=== PATIENT | female | born 1950 | race Caucasian/White ===

== ENCOUNTER 2019-04-07 14:42 | Inpatient (IN) ==
[2019-04-07] MEDS ORDERED: CARDIZEM INJ 50 MG VIAL ONE (15:05)
[2019-04-07] MEDS ORDERED: NS 1000 ML 1,000 ML ONE ×2 (15:14→17:28)
--- NOTE | 2019-04-07 15:15 | DR.ARRHYTH ---
HPI Time Seen Time Seen by Provider: 04/07/19 14:57 HPI Comment HPI Comment: PATIENT IS 68YR OLD WHITE FEMALE IN THE EMERGENCY ROOM WITH SOB. CHEST PAIN AND RAPID HEART RATE WITH FLUTTERING. PATIENT HAVE HISTORY OF TACHYCARDIA ON METOPROLOL. BUT TODAY IS WORSE. SHE IS WEAK AND FEEL SHE IS GOING TO PASS OUT. HAVING CHEST PAIN RADIATING TO LEFT CHEST THAT IS SHARP.RIGHT ARM IS TINGLING. AND HEART IS FLUTTERING. NO FEVER. Complaint Chief Complaint Doctor Comments: INCREASING SOB AND HEART FLUTTERING. Reviewed Nursing Notes Reviewed: Yes PMH PMH Past Medical History: Anxiety, Depression, Dyslipidemia and Hypertension Past Surgical History: No Surgical History: Hysterectomy, Joint Replacement and Other Family History Family Medical History: Hypertension Social History Do you use any recreational Drugs:: No infectious screening Isolation: Standard ROS Review of Systems Constitutional: No Symptoms Reported and See HPI; negative Chills, Fever, Weakness and Fatigue Eyes: No Symptoms Reported and See HPI; negative Eye Pain, Blurred Vision, Photophobia and Diplopia ENTM: No Symptoms Reported and See HPI; negative Ear Pain, Nose Discharge, Nose Congestion and Throat Pain Respiratoy: No Symptoms Reported and See HPI; negative Productive Cough, Short of Breath and Wheezing Cardiovascular: See HPI, Chest Pain and Palpitations; negative Syncope Gastrointestinal/Abdominal: No Symptoms Reported and See HPI; negative Abdominal Pain, Constipation, Diarrhea, Nausea and Vomiting Genitourinary: No Symptoms Reported, See HPI and Discharge Neurological: No Symptoms Reported, See HPI, Anxiety and Weakness; negative H eadache and Dizziness Musculoskeletal: No Symptoms Reported and See HPI Integumentary: No Symptoms Reported, See HPI and Change in Color; negative Rash and Juandice Hematologic/Lymphatic: No Symptoms Reported and See HPI; negative Easy Bruising, Swollen Glands and Lymphadenopathy Endocrine: No Symptoms Reported and See HPI; negative Increased Thirst, Increased Urine and Decreased Appetite Psychiatric: No Symptoms Reported and See HPI All Other Systems: Reviewed and Negative PE Vitals Vital Signs: Temp Pulse Resp BP BP Pulse Ox 04/07/19 17:31 138 H 107/75 04/07/19 17:30 124 H 82 L 04/07/19 17:15 130 H 96 04/07/19 17:00 114 H 128/83 99 04/07/19 16:58 130 H 125/82 99 04/07/19 16:45 129 H 39 H 91 L 04/07/19 16:30 111 H 27 H 109/63 78 L 04/07/19 16:15 106 H 18 99 04/07/19 16:00 109 H 18 111/58 100 04/07/19 15:45 106 H 24 96 04/07/19 15:30 96 H 20 104/70 98 04/07/19 15:15 116 H 26 H 99 04/07/19 15:11 128 H 25 H 97/59 98 04/07/19 14:54 97.5 F L 161 H 20 112/88 97 01/12/19 00:30 132/64 General Limitations: No Limitations General Appearance: Alert and In No Apparent Distress Head Head Exam: Normal Inspection and Atraumatic Eyes Eyes: Normal and Pale Conjunctiva Eye exam: Normal Appearance ENT ENT Exam: Normal Exam, Normal Oropharynx, Normal External Ear Exam and TM's Normal Bilaterally Neck Neck Exam: Normal Inspection and Trachea Midline; negative Tenderness and Lymphadenopathy Chest Chest Inspection: Normal Inspection Respiratory Respiratory Exam: Normal Lung Sounds Bilat and Chest Wall Tenderness; negative Accessory Muscle Use and Respiratory Distress Cardiovascular Cardiovascular Exam: Tachycardia, Irregular Rhythm and Normal Heart Sounds Type of Murmur: negative Systolic and Diastolic Abdominal Exam Abdominal Exam: Normal Inspection, Normal Bowel Sounds and Soft; negative Tenderness Rectal Rectal Exam: Deferred Extremities Extremities Exam: Normal Capillary Refill; negative Tenderness and Calf Tenderness Back Back Exam: Normal Inspection; negative Tenderness, (R) CVA Tenderness, (L) CVA Tenderness, Paraspinal Tenderness and Vertebral Tenderness Neurologic Neurological Exam: Alert, Oriented X3, CN II-XII Intact and Normal Gait; n egative Motor Sensory Deficit Psychiatric Psychiatric Exam: Normal Affect and Normal Mood Skin Skin Exam: Warm, Dry, Intact and Normal Color MDM Additional Information Additional Information Obtained From: Family Differential Diagnosis Atrial: Atrial Fibrillation and Atrial Flutter Ventricular: Angina/VA Miscellaneous: Anxiety/Panic, Electrolyte Disorder, Hyperthyroidism and Hypoxia COURSE Treatment Treatment: SEE ORDERS. Education/Counseling Education/Counseling: Patient and Family Educated On: Treatment and Diagnosis ROR Labs Reviewed Laboratory Results Reviewed?: Yes Result Diagrams: 04/07/19 15:23 04/07/19 15:23 Laboratory: WBC 5.2 X10^3/uL (3.6-10.0) 04/07/19 15:23 RBC 3.68 X10^6/uL (3.5-5.4) 04/07/19 15: Hgb 11.8 g/dL (12.0-16.0) L 04/07/19 15:23 Hct 35.7 % (36.0-47.0) L 04/07/19 15:23 MCV 96.8 fL (80.0-100.0) 04/07/19 15: MCH 32.0 pg (27.0-34.0) 04/07/19 15: MCHC 33.1 g/dL (33.0-35.0) 04/07/19 15: RDW 14.8 % (11.6-16.5) 04/07/19 15: Plt Count 183 X10^3/uL (150.0-450.0) 04/07/19 15: MPV 8.7 fL (7.4-11.0) 04/07/19 15: Neut % (Auto) 61.5 % (42.0-75.0) 04/07/19 15:23 Lymph % (Auto) 28.3 % (21.0-51.0) 04/07/19 15:23 [place] % (Auto) 8.2 % (0.0-13.0) 04/07/19 15: Eos % (Auto) 1.6 % (0.9-2.9) 04/07/19 15:23 Baso % (Auto) 0.4 % (0.2-1.0) 04/07/19 15: Neut # (Auto) 3.2 x10^3/uL (2.2-4.8) 04/07/19 15:23 Lymph # (Auto) 1.5 X10^3/uL (1.3-2.9) 04/07/19 15:23 [place] # (Auto) 0.4 x10^3/uL (0.3-0.8) 04/07/19 15: Eos # (Auto) 0.1 x10^3/uL (0.0-0.2) 04/07/19 15:23 Baso # (Auto) 0.0 X10^3/uL (0.0-0.1) 04/07/19 15: Absolute Nucleated RBC 0.1 /100WBC 04/07/19 15:23 PT 13.1 SECONDS (11.8-14.3) 04/07/19 15:23 INR Target Range - 04/07/19 15:23 INR 1.03 (0.8-1.3) 04/07/19 15:23 APTT 28.3 SECONDS (22.9-36.5) 04/07/19 15:23 PTT Comment - 04/07/19 15:23 Sodium 142 mmol/L (136-145) 04/07/19 15:23 Corrected Sodium TNP 04/07/19 15:23 Potassium 4.6 mmol/L (3.5-5.1) 04/07/19 15:23 Chloride 109 mmol/L (98-107) H 04/07/19 15:23 Carbon Dioxide 23.5 mmol/L (21-32) 04/07/19 15:23 BUN 19 mg/dL (7-18) H 04/07/19 15:23 Creatinine 0.96 mg/dL (0.55-1.02) 04/07/19 15:23 Est GFR (MDRD) Af Amer > 60 (>60) 04/07/19 15:23 Est GFR (MDRD) Non-Af > 60 (>60) 04/07/19 15:23 Glucose 94 mg/dL (65-99) 04/07/19 15:23 Calcium 7.8 mg/dL (8.5-10.1) L 04/07/19 15:23 Corrected Calcium 8.7 mg/dL (8.5-10.1) 04/07/19 15:23 Magnesium 1.6 mg/dL (1.7-2.9) L 04/07/19 15:23 Total Bilirubin 0.10 mg/dL (0.2-1.0) L 04/07/19 15:23 AST 24 Units/L (15-37) 04/07/19 15:23 ALT 28 Units/L (12-78) 04/07/19 15:23 Alkaline Phosphatase 54 Units/L (46-116) 04/07/19 15:23 Creatine Kinase 40 Units/L (26-192) 04/07/19 15:23 CK-MB (CK-2) < 1.0 ng/mL (0-4.0) 04/07/19 15:23 CK/CKMB % Calc 2.5 % (<4) 04/07/19 15:23 Troponin I < 0.02 ng/mL (0-1.5) 04/07/19 15:23 Total Protein 5.6 g/dL (6.4-8.2) L 04/07/19 15:23 Albumin 2.9 g/dL (3.4-5.0) L 04/07/19 15:23 Globulin 2.7 g/dL (2.5-4.5) 04/07/19 15:23 Albumin/Globulin Ratio 1.1 Ratio (1.1-2.1) 04/07/19 15:23 XRAY XRAY Interpreted by: Radiologist XRAY Findings: REPORT NOTED AND DISCUSSED WITH PATIENT AND HER FAMILY. EKG Rate: 158 [place]: Normal Rhythm: Afib (WITH RVR.) Block: None Hypertrophy: None ST: Nonsp Opioid Opioid Risk Tool Age (Maxi box if 16-45): No Total: 0 Total Score Risk Category: Low Risk Copyright: Terrell LR predicting aberrant behaviors Diagnosis Discharge Problem: Atrial fibrillation, new onset, Near syncope
[2019-04-07] MEDS ORDERED: NS 1000 ML 1,000 ML IV ONE (15:19)
--- NOTE | 2019-04-07 15:29 | RAD ---
History: Acute chest pain Study: AP chest Comparison: None Findings: The lungs are clear and the heart and mediastinum are unremarkable. There is no edema or effusion. No bony abnormality is demonstrated. Impression: No evidence for active cardiopulmonary disease Reported By:
[2019-04-07 15:31] LABS: BASOPHILS % (AUTO) 0.4 % (0.2-1.0); EOSINOPHILS # (AUTO) 0.1 x10^3/uL (0.0-0.2); EOSINOPHILS % (AUTO) 1.6 % (0.9-2.9); HEMATOCRIT 35.7 % (36.0-47.0); HEMOGLOBIN 11.8 g/dL (12.0-16.0); LYMPHOCYTES # (AUTO) 1.5 X10^3/uL (1.3-2.9); LYMPHOCYTES % (AUTO) 28.3 % (21.0-51.0); MEAN CORPUSCULAR HGB CONC 33.1 g/dL (33.0-35.0); MEAN CORPUSCULAR VOLUME 96.8 fL (80.0-100.0); MEAN PLATELET VOLUME 8.7 fL (7.4-11.0); MONOCYTES # (AUTO) 0.4 x10^3/uL (0.3-0.8); MONOCYTES % (AUTO) 8.2 % (0.0-13.0); NEUTROPHILS # (AUTO) 3.2 x10^3/uL (2.2-4.8); NEUTROPHILS % (AUTO) 61.5 % (42.0-75.0); PLATELET COUNT 183 X10^3/uL (150.0-450.0); RED BLOOD COUNT 3.68 X10^6/uL (3.5-5.4); RED CELL DISTRIBUTION WIDTH 14.8 % (11.6-16.5); WHITE BLOOD COUNT 5.2 X10^3/uL (3.6-10.0)
[2019-04-07 15:48] LABS: BLOOD UREA NITROGEN 19 mg/dL (7-18); CALCIUM 7.8 mg/dL (8.5-10.1); CARBON DIOXIDE 23.5 mmol/L (21-32); CHLORIDE 109 mmol/L (98-107); CREATININE 0.96 mg/dL (0.55-1.02); SODIUM 142 mmol/L (136-145); TROPONIN I < 0.02 ng/mL (0-1.5); eGFR NON BLACK RACES > 60 (>60)
[2019-04-07 15:52] LABS: ALANINE AMINOTRANSFERASE 28 Units/L (12-78); ALBUMIN 2.9 g/dL (3.4-5.0); ALKALINE PHOSPHATASE 54 Units/L (46-116); ASPARTATE AMINO TRANSFERASE 24 Units/L (15-37); CKMB % 2.5 % (<4); COR CA(FOR HYPOALB) 8.7 mg/dL (8.5-10.1); CREATINE KINASE 40 Units/L (26-192); CREATINE KINASE MB < 1.0 ng/mL (0-4.0); MAGNESIUM 1.6 mg/dL (1.7-2.9); TOTAL PROTEIN 5.6 g/dL (6.4-8.2)
[2019-04-07] MEDS ORDERED: LOPRESSOR TAB 50 MG ONE (15:54)
[2019-04-07] MEDS ORDERED: LOPRESSOR TAB 25 MG PO ONE (16:00)
[2019-04-07] MEDS ORDERED: NS 100 ML IV 100 ML IV ONE (17:15)
[2019-04-07] MEDS ORDERED: CARDIZEM INJ 125 MG VIAL ONE (17:15)
[2019-04-07] MEDS ORDERED: CARDIZEM INJ 50 MG VIAL IVP ONE (17:45)
[2019-04-07] MEDS: CARDIZEM INJ 125 MG VIAL 125 MG in NS 100 ML IV 100 ML IV PRN (17:50)
[2019-04-07] MEDS ORDERED: ATIVAN TAB 1 MG PO PRN (17:56)
[2019-04-07] MEDS ORDERED: ATIVAN TAB 1 MG ONE (18:08)
[2019-04-07] MEDS ORDERED: NS 1000 ML 1,000 ML IV SCH (19:00)
[2019-04-07] MEDS: NS 1000 ML 1,000 ML IV SCH (19:33)
[2019-04-07 20:07] VITALS: BMI 20.2
[2019-04-07] MEDS ORDERED: AFLURIA II4 or FLUARIX II4 IM ONE (20:07)
[2019-04-07] MEDS ORDERED: PREVNAR 13 IM ONE (20:07)
[2019-04-07] MEDS ORDERED: NORCO 5/325 MG TAB ONE (20:11)
[2019-04-07] MEDS: NORCO 5/325 MG TAB PO PRN (20:35)
[2019-04-07] MEDS: AMBIEN PO PRN (20:36)
[2019-04-07] MEDS ORDERED: MAGNESIUM SULFATE 1 GRAM/100 mL PREMIX 1 G/100 ML BAG IV ONE (21:55)
[2019-04-07] MEDS: MAGNESIUM SULFATE 1 GRAM/100 mL PREMIX 1 GM/100 ML BAG IV PRN ×2 (22:10→23:22)
[2019-04-07] MEDS ORDERED: ZOFRAN INJ 4 MG VIAL IVP PRN (22:27)
[2019-04-07] MEDS ORDERED: ZOFRAN INJ 4 MG VIAL ONE (22:33)
[2019-04-08] MEDS: NS 1000 ML 1,000 ML IV SCH ×4 (00:13→18:59)
[2019-04-08] MEDS: PEPCID 20 MG IV PREMIX* 20 MG/50 ML BAG IV SCH ×2 (00:15→09:30)
[2019-04-08] MEDS: NORCO 5/325 MG TAB PO PRN ×3 (06:06→21:53)
[2019-04-08 06:14] LABS: BASOPHILS % (AUTO) 0.4 % (0.2-1.0); EOSINOPHILS # (AUTO) 0.1 x10^3/uL (0.0-0.2); EOSINOPHILS % (AUTO) 1.7 % (0.9-2.9); HEMATOCRIT 34.7 % (36.0-47.0); HEMOGLOBIN 11.4 g/dL (12.0-16.0); LYMPHOCYTES # (AUTO) 0.8 X10^3/uL (1.3-2.9); LYMPHOCYTES % (AUTO) 17.3 % (21.0-51.0); MEAN CORPUSCULAR HGB CONC 32.8 g/dL (33.0-35.0); MEAN CORPUSCULAR VOLUME 97.5 fL (80.0-100.0); MONOCYTES # (AUTO) 0.4 x10^3/uL (0.3-0.8); MONOCYTES % (AUTO) 8.7 % (0.0-13.0); NEUTROPHILS # (AUTO) 3.2 x10^3/uL (2.2-4.8); NEUTROPHILS % (AUTO) 71.9 % (42.0-75.0); PLATELET COUNT 133 X10^3/uL (150.0-450.0); RED BLOOD COUNT 3.55 X10^6/uL (3.5-5.4); RED CELL DISTRIBUTION WIDTH 15.1 % (11.6-16.5); WHITE BLOOD COUNT 4.5 X10^3/uL (3.6-10.0)
[2019-04-08 06:39] LABS: ALANINE AMINOTRANSFERASE 26 Units/L (12-78); ALBUMIN 2.6 g/dL (3.4-5.0); ALKALINE PHOSPHATASE 47 Units/L (46-116); ASPARTATE AMINO TRANSFERASE 21 Units/L (15-37); BLOOD UREA NITROGEN 14 mg/dL (7-18); CALCIUM 7.1 mg/dL (8.5-10.1); CARBON DIOXIDE 20.4 mmol/L (21-32); CHLORIDE 114 mmol/L (98-107); CKMB % 2.4 % (<4); COR CA(FOR HYPOALB) 8.2 mg/dL (8.5-10.1); CREATINE KINASE 41 Units/L (26-192); CREATINE KINASE MB < 1.0 ng/mL (0-4.0); MAGNESIUM 2.2 mg/dL (1.7-2.9); SODIUM 145 mmol/L (136-145); TROPONIN I < 0.02 ng/mL (0-1.5); eGFR NON BLACK RACES > 60 (>60)
[2019-04-08] MEDS ORDERED: KLOR-CON PO PRN (06:50)
[2019-04-08] MEDS ORDERED: K-RIDER 10 MEQ/NS 100 ML 10 MEQ/100 ML BAG IV PRN (06:50)
[2019-04-08] MEDS ORDERED: POTASSIUM CHL 40 MEQ/NS 0.45% 500 ML IV PRN (06:50)
[2019-04-08] MEDS ORDERED: POTASSIUM CHL 60 MEQ/NS 0.45% 500 ML IV PRN (06:50)
[2019-04-08] MEDS ORDERED: MICRO K EXTEN CAP 10 MEQ PO PRN (06:50)
[2019-04-08] MEDS ORDERED: POTASSIUM CHLORIDE LIQ 20 MEQ UDC PO PRN (06:50)
[2019-04-08] MEDS ORDERED: PATIENT'S HOME MEDICATION (Ranitidine Hcl 300 MG) PO SCH (09:00)
[2019-04-08] MEDS ORDERED: ZANTAC PO SCH (09:00)
[2019-04-08] MEDS ORDERED: ESTRACE PO SCH (09:00)
[2019-04-08] MEDS: LOVENOX INJ 40 MG SYR SC SCH (09:46)
--- NOTE | 2019-04-08 10:28 | RAD ---
History: Shortness of breath and atrial fib Study: Upright portable AP chest Comparison: Yesterday Findings: There are new [place] B-lines and there is new mild vascular congestion. The heart size is prominent. There is no definite pleural effusion. There is mild subsegmental atelectasis at the right lung base. Impression: New interstitial edema and mild vascular congestion suggesting right sided heart failure Mild right basilar subsegmental atelectasis Reported By:
[2019-04-08] MEDS: CARDIZEM CD 240 MG 24-HR PO SCH (11:27)
[2019-04-08] MEDS: CARDIZEM INJ 125 MG VIAL 125 MG in NS 100 ML IV 100 ML IV PRN (11:28)
[2019-04-08] MEDS: PATIENT'S HOME MEDICATION (Diclofenac Sodium 75 MG) PO SCH (11:29)
[2019-04-08] MEDS ORDERED: LASIX IVP ONE ×2 (11:37→12:11)
[2019-04-08] MEDS: K-DUR TAB 20 MEQ PO PRN ×3 (13:41→20:19)
--- NOTE | 2019-04-08 17:25 | DR.H&P ---
H&P - History & Physical for Day of: H&P Date: 04/07/19 - Chief Complaint Chief Complaint: SOB, HEART RACING, WEAKNESS - History of Present Illness History of Present Illness: PT IS 68 WF ER ADMISSION AFTER PRESENTING WITH CO PATIENT IS 68YR OLD WHITE FEMALE IN THE EMERGENCY ROOM WITH SOB, CHEST PAIN AND RAPID HEART RATE WITH FLUTTERING. PATIENT HAVE HISTORY OF TACHYCARDIA WAS METOPROLOL WHICH SHE HAS NOT TAKEN FOR SEVERAL DAYS AND MUCH WORSE TODAY. SHE IS WEAK AND FEEL SHE IS GOING TO PASS OUT. HAVING CHEST PAIN RADIATING TO LEFT CHEST. PT WAS TACHYCARDIC IN ER, STARTED ON CARDIZEM DRIP, ADMITTED TO ICU FOR TREATMENT AND EVALUATION OF ACUTE ILLNESS. - Past Medical History Past Medical History: Hypertension, Dyslipidemia, Depression, Anxiety - Past Surgical History Surgical History: Hysterectomy, Ortho Surgery, Other - Family History Family Medical History: Diabetes Mellitus, Cancer, [place], Heart Failure, Hypertensi on - Social History Does patient currently use any type of tobacco product: No Have you used tobacco products in the last 12 months: No Type of Tobacco Use: None Does any household member use tobacco: No Alcohol Use: None Drug Use: None - Medications Home Medications: No Known Drug Allergies Allergy (Verified 04/07/19 15:01) CONTINUE taking the following medications diclofenac sodium 75 mg PO DAILY 04/07/19 [History] - Review of Systems Constitutional: Weakness Eyes: No Symptoms Reported ENT: No Symptoms Reported Respiratory: Wheezing Cardiovascular: Chest Pain, Palpitations, Light Headedness Gastrointestinal: No Symptoms Reported Genitourinary: No Symptoms Reported Musculoskeletal: No Symptoms Reported Skin: No Symptoms Reported Neurological: Weakness - Physical Exam Vital Signs: Temperature 98.6 F Pulse Rate [Apical] 71 Pulse Rate 102 Respiratory Rate 20 Blood Pressure [Left Arm] 97/68 Blood Pressure 118/70 O2 Sat by Pulse Oximetry 98 Oriented: Normal Eyes: Normal Ear: Normal Nose: Normal Throat: Normal Respiratory: RLL Diminished, LLL Diminished Cardiovascular: Tachycardia, Irregular. negative: Edema : Normal Auscultation: Bowel Sounds: Normal Palpation: Normal Tenderness: Epigastric, Mild Skin: Decreased [place] Musculoskeletal: Normal Psychiatric: Anxiety Affect: Anxious Speech Pattern: Clear, Appropriate - Assessment/Plan (1) Atrial fibrillation with RVR Status: Acute Plan: CARDIZEM DRIP. CONTINOUS CARDIAC AND BP CONTROL, MONITORING. SUPPLEMENTAL O2. STRICT I & OS, VERIFY HOME MEDICATION. CXR Q AM, ANTICOAG THERAPY (2) Chest pain Status: Acute (3) Shortness of breath Status: Acute - Allergies Allergies/Adverse Reactions: Allergies Allergy/AdvReac Type Severity Reaction Status Date / Time No Known Drug Allergies Allergy Verified 04/07/19 15:01
--- NOTE | 2019-04-08 17:32 | PCM.PROG ---
Progress Note - Progress Note for Day of Date of Exam: 04/08/19 - Subjective Subjective: 68 WF ER ADMISSION WITH AFIB WITH RVR, PT CURRENTLY ON CARDIZEM DRIP, BP STABLE THIS AM, HEART RATE 101, AFIB. PT CO INCREASED SOB. PT DENIES ANY HX OF CAD, DENIES ANY PREVOUS HEART CATH OR STRESS TEST. PT HAS MILD EPIGASTRIC TENDERNESS, STARTED ON PROTONIX IV. PLAN TO START PO CARDIZEM AND T APER OFF DRIP PER PROTOCOL. AM CXR WITH RIGHT SIDE HEART FAILURE, LASIX IV GIVEN, IV FLUIDS D/C. CONTINUE STRICT I&OS PAIN CONTROL. - Past Medical Family Social History Past Med/Fam/Surg Hx: No changes since H&P Allergies: Allergies No Known Drug Allergies Allergy (Verified 04/07/19 15:01) - Review of Systems ROS: No change since H&P - Vital Signs and I&O's Vital Signs: Temperature 98.6 F Pulse Rate [Apical] 71 Pulse Rate 102 Respiratory Rate 20 Blood Pressure [Left Arm] 97/68 Blood Pressure 118/70 O2 Sat by Pulse Oximetry 98 Intake and Output: Intake & Output 04/06/19 04/07/19 04/08/19 04/09/19 11:59 11:59 11:59 11:59 Intake Total 2319 / 2319 2053 / 2053 Output Total 900 / 900 2250 / 2250 Balance 1419 / 1419 -196 / -196 - Physical Exam Oriented: Normal Eyes: Normal Ear: Normal Nose: Normal Throat: Normal Respiratory: Diminished Cardiovascular: Tachycardia, Irregular. negative: Edema : Normal Auscultation: Bowel Sounds: Normal Tenderness: Epigastric, Mild Skin: Decreased [place] Musculoskeletal: Normal Psychiatric: Anxiety Affect: Anxious Speech Pattern: Clear, Appropriate - Laboratory and Diagnostics Result Diagrams: 04/08/19 05:39 04/08/19 15:44 Labs: Laboratory WBC 4.5 X10^3/uL (3.6-10.0) 04/08/19 05:39 RBC 3.55 X10^6/uL (3.5-5.4) 04/08/19 05:39 Hgb 11.4 g/dL (12.0-16.0) L 04/08/19 05:39 Hct 34.7 % (36.0-47.0) L 04/08/19 05:39 MCV 97.5 fL (80.0-100.0) 04/08/19 05:39 MCH 32.0 pg (27.0-34.0) 04/08/19 05:39 MCHC 32.8 g/dL (33.0-35.0) L 04/08/19 05:39 RDW 15.1 % (11.6-16.5) 04/08/19 05:39 Plt Count 133 X10^3/uL (150.0-450.0) L 04/08/19 05:39 MPV 9.0 fL (7.4-11.0) 04/08/19 05:39 Neut % (Auto) 71.9 % (42.0-75.0) 04/08/19 05:39 Lymph % (Auto) 17.3 % (21.0-51.0) L 04/08/19 05:39 [place] % (Auto) 8.7 % (0.0-13.0) 04/08/19 05:39 Eos % (Auto) 1.7 % (0.9-2.9) 04/08/19 05:39 Baso % (Auto) 0.4 % (0.2-1.0) 04/08/19 05:39 Neut # (Auto) 3.2 x10^3/uL (2.2-4.8) 04/08/19 05:39 Lymph # (Auto) 0.8 X10^3/uL (1.3-2.9) L 04/08/19 05:39 [place] # (Auto) 0.4 x10^3/uL (0.3-0.8) 04/08/19 05:39 Eos # (Auto) 0.1 x10^3/uL (0.0-0.2) 04/08/19 05:39 Baso # (Auto) 0.0 X10^3/uL (0.0-0.1) 04/08/19 05:39 Absolute Nucleated RBC 0.0 /100WBC 04/08/19 05:39 PT 13.8 SECONDS (11.8-14.3) 04/08/19 05:39 INR Target Range - 04/08/19 05:39 INR 1.10 (0.8-1.3) 04/08/19 05:39 APTT 28.1 SECONDS (22.9-36.5) 04/08/19 05:39 PTT Comment - 04/08/19 05:39 Sodium 145 mmol/L (136-145) 04/08/19 05:39 Corrected Sodium TNP 04/08/19 05:39 Potassium 3.4 mmol/L (3.5-5.1) L 04/08/19 15:44 Chloride 114 mmol/L (98-107) H 04/08/19 05:39 Carbon Dioxide 20.4 mmol/L (21-32) L 04/08/19 05:39 BUN 14 mg/dL (7-18) 04/08/19 05:39 Creatinine 0.80 mg/dL (0.55-1.02) 04/08/19 05:39 Est GFR (MDRD) Af Amer > 60 (>60) 04/08/19 05:39 Est GFR (MDRD) Non-Af > 60 (>60) 04/08/19 05:39 Glucose 88 mg/dL (65-99) 04/08/19 05:39 Calcium 7.1 mg/dL (8.5-10.1) L 04/08/19 05:39 Corrected Calcium 8.2 mg/dL (8.5-10.1) L 04/08/19 05:39 Magnesium 2.2 mg/dL (1.7-2.9) 04/08/19 05:39 Total Bilirubin 0.10 mg/dL (0.2-1.0) L 04/08/19 05:39 AST 21 Units/L (15-37) 04/08/19 05:39 ALT 26 Units/L (12-78) 04/08/19 05:39 Alkaline Phosphatase 47 Units/L (46-116) 04/08/19 05:39 Creatine Kinase 41 Units/L (26-192) 04/08/19 05:39 CK-MB (CK-2) < 1.0 ng/mL (0-4.0) 04/08/19 05:39 CK/CKMB % Calc 2.4 % (<4) 04/08/19 05:39 Troponin I < 0.02 ng/mL (0-1.5) 04/08/19 05:39 Total Protein 5.0 g/dL (6.4-8.2) L 04/08/19 05:39 Albumin 2.6 g/dL (3.4-5.0) L 04/08/19 05:39 Globulin 2.4 g/dL (2.5-4.5) L 04/08/19 05:39 Albumin/Globulin Ratio 1.1 Ratio (1.1-2.1) 04/08/19 05:39 - Plan (1) Atrial fibrillation with RVR Status: Acute Plan: CARDIZEM DRIP PER PROTOCOL. CONTINOUS CARDIAC AND BP CONTROL, MONITORING. SUPPLEMENTAL O2. STRICT I & OS, VERIFY HOME MEDICATION. CXR Q AM, ANTICOAG THERAPY (2) Chest pain Status: Acute (3) Shortness of breath Status: Acute
[2019-04-08] MEDS: ATIVAN TAB 1 MG PO PRN (18:50)
[2019-04-08] MEDS: MAGNESIUM SULFATE 1 GRAM/100 mL PREMIX 1 GM/100 ML BAG IV PRN ×2 (20:20→21:09)
[2019-04-08] MEDS: AMBIEN PO PRN (21:53)
[2019-04-09] MEDS: NS 1000 ML 1,000 ML IV SCH ×2 (03:48→12:40)
[2019-04-09 06:38] LABS: BASOPHILS % (AUTO) 0.3 % (0.2-1.0); EOSINOPHILS # (AUTO) 0.1 x10^3/uL (0.0-0.2); EOSINOPHILS % (AUTO) 2.2 % (0.9-2.9); HEMATOCRIT 33.7 % (36.0-47.0); HEMOGLOBIN 11.2 g/dL (12.0-16.0); LYMPHOCYTES # (AUTO) 0.5 X10^3/uL (1.3-2.9); LYMPHOCYTES % (AUTO) 15.1 % (21.0-51.0); MEAN CORPUSCULAR HEMOGLOBIN 32.2 pg (27.0-34.0); MEAN CORPUSCULAR HGB CONC 33.4 g/dL (33.0-35.0); MEAN CORPUSCULAR VOLUME 96.6 fL (80.0-100.0); MEAN PLATELET VOLUME 8.9 fL (7.4-11.0); MONOCYTES # (AUTO) 0.4 x10^3/uL (0.3-0.8); MONOCYTES % (AUTO) 10.2 % (0.0-13.0); NEUTROPHILS # (AUTO) 2.6 x10^3/uL (2.2-4.8); NEUTROPHILS % (AUTO) 72.2 % (42.0-75.0); PLATELET COUNT 132 X10^3/uL (150.0-450.0); RED BLOOD COUNT 3.49 X10^6/uL (3.5-5.4); RED CELL DISTRIBUTION WIDTH 14.7 % (11.6-16.5); WHITE BLOOD COUNT 3.6 X10^3/uL (3.6-10.0)
[2019-04-09 06:46] LABS: ALANINE AMINOTRANSFERASE 37 Units/L (12-78); ALBUMIN 2.6 g/dL (3.4-5.0); ALKALINE PHOSPHATASE 55 Units/L (46-116); ASPARTATE AMINO TRANSFERASE 28 Units/L (15-37); BLOOD UREA NITROGEN 8 mg/dL (7-18); CALCIUM 7.6 mg/dL (8.5-10.1); CARBON DIOXIDE 23.9 mmol/L (21-32); CHLORIDE 108 mmol/L (98-107); COR CA(FOR HYPOALB) 8.7 mg/dL (8.5-10.1); SODIUM 141 mmol/L (136-145); TOTAL PROTEIN 5.3 g/dL (6.4-8.2); eGFR NON BLACK RACES > 60 (>60)
[2019-04-09] MEDS: LOVENOX INJ 40 MG SYR SC SCH (08:04)
[2019-04-09] MEDS: PATIENT'S HOME MEDICATION (Diclofenac Sodium 75 MG) PO SCH (08:04)
[2019-04-09] MEDS: CARDIZEM CD 240 MG 24-HR PO SCH (08:04)
[2019-04-09] MEDS ORDERED: PROTONIX INJ 40 MG VIAL IVP SCH (09:00)
[2019-04-09] MEDS ORDERED: HEPARIN SODIUM IN D5W 25,000 UNITS/500 ML BAG IV PRN (09:34)
[2019-04-09 09:35] LABS: CKMB % 2.6 % (<4); CREATINE KINASE 39 Units/L (26-192); CREATINE KINASE MB < 1.0 ng/mL (0-4.0); TROPONIN I < 0.02 ng/mL (0-1.5)
[2019-04-09] MEDS: ATIVAN TAB 1 MG PO PRN (09:37)
[2019-04-09] MEDS: CARDIZEM INJ 125 MG VIAL 125 MG in NS 100 ML IV 100 ML IV PRN (09:38)
[2019-04-09] MEDS ORDERED: HEPARIN SODIUM INJ 5000 UNITS IVP ONE (09:44)
[2019-04-09] MEDS ORDERED: HEPARIN SODIUM INJ 5000 UNITS ONE (09:47)
--- NOTE | 2019-04-09 10:05 | RAD ---
Chest AP portable Indication: Dyspnea and atrial fibrillation. Comparison: 04/08/2019 radiograph Findings: There is no pneumothorax. Monitoring leads obscure detail. There is no consolidation. Patchy left lower lung peribronchial thickening is noted, with possible underlying infiltrate. Trace effusions possible on the left. No large effusion seen. Overall, peribronchial markings have decreased Impression: 1. Improving appearance of the lungs suggesting improving CHF 2. Patchy left lower lung opacity could reflect pneumonia. Recommend continued follow-up to resolution to exclude underlying process Reported By:
[2019-04-09 13:26] VITALS: BP 98/55
== END 2019-04-09 13:31 | disposition short-term general hospital (02) | DRG 310 ==
LOC: ER 14:42 → ICU 17:46
PROVIDERS: ADMIT Internal Medicine; ATTEND Internal Medicine
DX: R07.89 Other chest pain; Z23 Encounter for immunization; E78.2 Mixed hyperlipidemia; R20.0 Anesthesia of skin; R06.02 Shortness of breath; R47.89 Other speech disturbances; I48.91 Unspecified atrial fibrillation; F41.8 Other specified anxiety disorders
CPT/HCPCS: 36415; 71010; 71045; 80053; 82550; 82553; 83735; 84132; 84484; 85025; 85610; 85730; 90674; 90686; 92507; 92523; 93005; 96365; 96367; 96374; 96375; 99285; A4216; A4222; C9113; S0028; 90670; J1644; J1650; J1940; J2405; J3475; J3490; J7030; J7050

== ENCOUNTER 2020-03-24 11:23 | Inpatient (IN) ==
[2020-03-24 11:52] VITALS: BMI 21.2
--- NOTE | 2020-03-24 13:03 | DR.NAUSEAF ---
HPI Time Seen Time Seen by Provider: 03/24/20 12:51 Primary Care Physician Primary Care Physician: NFD Complaints Chief Complaint Doctors Comments: Patient anxious, her PCP DR. Osullivan was shut down and she is out of her anxiety medicine. Chief Complaint:: PT C/O THROWING UP, STOMACH HURTING, ACHING ALL OVER, "MY HEART BEATS REAL FAST" Self Treatment fo Chief Complaint: "COUGH SYRUP AT HOME, I TAKE MY REGULAR MEDICINE AT HOME" " I TOOK A GOODY PM TO HELP ME SLEEP" COVID-19 Coronavirus risk:travel/contact w/high risk person: No Has patient experienced Coronavirus symptoms: Yes Coronavirus symptoms experienced: Coughing and Shortness of Breath Reviewed Nurses Notes Reviewed: Yes Source History Provided: Patient Mode of Arrival Mode of Arrival: Ambulatory Timing Onset of Chief Complaint: 03/10/20 Severity Number of episodes of vomiting over last 24 hours: 14 Context Onset: Spontaneous Recent: denies Travel, Contact Exposure and None Possible Ingestion: Unknown : No Quality Quality: Bilious Associated Signs and Symptoms Abdominal Pain Quality: Aching Abdominal Pain Location: Epigastric Symptoms: denies Diarrhea PMH PMH Past Medical History: Yes Past Medical History: Anxiety, Depression, Dyslipidemia, GERD and Hypertension Past Surgical History: Yes Surgical History: Hysterectomy, Joint Replacement, Ortho Surgery and Other Family History History of Family Medical Conditions: Yes Family Medical History: Diabetes Mellitus, Cancer, [place], Heart Failure and Hypertension Social History Does any household member use tobacco: Yes Alcohol Use: Rarely Do you use any recreational Drugs:: No Lives With: Family Lives Where: Home Travel Risk Coronavirus risk:travel/contact w/high risk person: No Has patient experienced Coronavirus symptoms: Yes Coronavirus symptoms experienced: Coughing and Shortness of Breath Infectious screening In the last 2 months have you had wt loss of >10#?: NO Have you had fever, night sweats or hemotysis?: No Have you traveled outside the country in the last 6 months?: No Isolation: Droplet ROS Review of Systems Constitutional: No Symptoms Reported Eyes: No Symptoms Reported ENTM: No Symptoms Reported Respiratoy: No Symptoms Reported Cardiovascular: Palpitations Gastrointestinal/Abdominal: Nausea and Vomiting Genitourinary: No Symptoms Reported Neurological: Anxiety Musculoskeletal: No Symptoms Reported Integumentary: No Symptoms Reported Hematologic/Lymphatic: No Symptoms Reported Endocrine: No Symptoms Reported Psychiatric: Anxiety All Other Systems: Reviewed and Negative PE Vital Signs Vitals: Temperature 97.9 F Pulse Rate [Left] 88 Pulse Rate 116 Respiratory Rate 20 Blood Pressure [Left Arm] 137/66 Blood Pressure 130/68 O2 Sat by Pulse Oximetry 97 General Limitations: No Limitations General Appearance: Alert and In No Apparent Distress Head Head Exam: Normal Inspection, Atraumatic and Normocephalic Eyes Eye exam: Normal Appearance and EOMI ENT ENT Exam: Normal Exam and Normal Oropharynx Neck Neck Exam: Normal Inspection, Full ROM and Trachea Midline Chest Chest Inspection: Normal Inspection Respiratory Respiratory Exam: Normal Lung Sounds Bilat Respiratory Exam: Bilateral: Clear to Auscultation Cardiovascular Cardiovascular Exam: Tachycardia Abdominal Exam Abdominal Exam: Normal Inspection, Normal Bowel Sounds and Soft; negative Distention and Guarding Abdominal Tenderness: Epigastrium Rectal Rectal Exam: Deferred External Exam: Female: Deferred : Speculum Exam (Female): Deferred : Bimanual Exam (female): Deferred Extremities Extremities Exam: Normal Inspection and Full ROM Back Back Exam: Normal Inspection and Full ROM Psychiatric Psychiatric Exam: Anxious Skin Skin Exam: Normal Color COURSE Consultation Called: 15:39 Call Returned: 15:39 Consultation Comments: case discussed with DR. Swenson admit for 2 units PRBC ROR Labs Reviewed Result Diagrams: 03/24/20 13:12 03/24/20 13:12 Laboratory: WBC 4.8 X10^3/uL (3.6-10.0) 03/24/20 13:12 RBC 3.21 X10^6/uL (3.5-5.4) L 03/24/20 13:12 Hgb 7.1 g/dL (12.0-16.0) L 03/24/20 13:12 Hct 23.5 % (36.0-47.0) L 03/24/20 13:12 MCV 73.0 fL (80.0-100.0) L 03/24/20 13:12 MCH 22.0 pg (27.0-34.0) L 03/24/20 13:12 MCHC 30.1 g/dL (33.0-35.0) L 03/24/20 13:12 RDW 19.1 % (11.6-16.5) H 03/24/20 13:12 Plt Count 434 X10^3/uL (150.0-450.0) 03/24/20 13:12 Plt Count Comment Adequate (ADEQUATE) 03/24/20 13:12 MPV 8.0 fL (7.4-11.0) 03/24/20 13:12 Neut % (Auto) 79.0 % (42.0-75.0) H 03/24/20 13:12 Lymph % (Auto) 14.1 % (21.0-51.0) L 03/24/20 13:12 [place] % (Auto) 5.4 % (0.0-13.0) 03/24/20 13:12 Eos % (Auto) 0.5 % (0.9-2.9) L 03/24/20 13:12 Baso % (Auto) 1.0 % (0.2-1.0) 03/24/20 13:12 Neut # (Auto) 3.8 x10^3/uL (2.2-4.8) 03/24/20 13:12 Lymph # (Auto) 0.7 X10^3/uL (1.3-2.9) L 03/24/20 13:12 [place] # (Auto) 0.3 x10^3/uL (0.3-0.8) 03/24/20 13:12 Eos # (Auto) 0.0 x10^3/uL (0.0-0.2) 03/24/20 13:12 Baso # (Auto) 0.0 X10^3/uL (0.0-0.1) 03/24/20 13:12 Absolute Nucleated RBC 0.1 /100WBC 03/24/20 13:12 Plt Morphology Comment Normal (NORMAL) 03/24/20 13:12 RBC Morphology Abnormal (NORMAL) A 03/24/20 13:12 Hypochromasia 1+ A 03/24/20 13:12 Anisocytosis Slight A 03/24/20 13:12 Microcytosis Slight A 03/24/20 13:12 Sodium 138 mmol/L (136-145) 03/24/20 13:12 Corrected Sodium TNP 03/24/20 13:12 Potassium 3.7 mmol/L (3.5-5.1) 03/24/20 13:12 Chloride 102 mmol/L (98-107) 03/24/20 13:12 Carbon Dioxide 25.4 mmol/L (21-32) 03/24/20 13:12 BUN 9 mg/dL (7-18) 03/24/20 13:12 Creatinine 1.02 mg/dL (0.55-1.02) 03/24/20 13:12 Est GFR (MDRD) Af Amer > 60 (>60) 03/24/20 13:12 Est GFR (MDRD) Non-Af 57 (>60) L 03/24/20 13:12 Glucose 99 mg/dL (65-99) 03/24/20 13:12 Calcium 8.8 mg/dL (8.5-10.1) 03/24/20 13:12 Corrected Calcium TNP 03/24/20 13:12 Iron 9 ug/dL (50-175) L 03/24/20 13:12 Transferrin 366 mg/dL (202-364) H 03/24/20 13:12 Ferritin 6 ng/mL (8-252) L 03/24/20 13:12 Total Bilirubin 0.20 mg/dL (0.2-1.0) 03/24/20 13:12 AST 21 Units/L (15-37) 03/24/20 13:12 ALT 10 Units/L (12-78) L 03/24/20 13:12 Alkaline Phosphatase 80 Units/L (46-116) 03/24/20 13:12 Total Protein 7.5 g/dL (6.4-8.2) 03/24/20 13:12 Albumin 3.4 g/dL (3.4-5.0) 03/24/20 13:12 Globulin 4.1 g/dL (2.5-4.5) 03/24/20 13:12 Albumin/Globulin Ratio 0.8 Ratio (1.1-2.1) L 03/24/20 13:12 Vitamin B12 1054 pg/mL (193-986) H 03/24/20 13:12 Folate 18.6 ng/mL (>8.6) 03/24/20 13:12 Stool Description Fob tube 03/24/20 14:49 Stl Occult Blood (IFOB) Negative (NEGATIVE) 03/24/20 14:49 Blood Type O POSITIVE 03/24/20 12:51 Antibody Screen Negative 10/15/20 12:51 XRAY XRAY Interpreted by: Radiologist X-ray Results: AAS: no free air, No air fluid levels EKG Rate: 92 Rhythm: NSR Block: None Hypertrophy: None ST: Normal Opioid Opioid Risk Tool Age (Maxi box if 16-45): No History of Preadolescent Sexual Abuse: No Total: 0 Total Score Risk Category: Low Risk Copyright: Xander LIAO predicting aberrant behaviors Diagnosis Discharge Problem: Anemia Qualifiers: Anemia type: iron deficiency Iron deficiency anemia type: unspecified iron deficiency Qualified Code(s): D50.9 - Iron deficiency anemia, unspecified Instructions Forms: Precautions for COVID19 Patient Portal Social Distancing
[2020-03-24] MEDS ORDERED: ZOFRAN TAB 4 MG PO ONE (13:04)
[2020-03-24] MEDS ORDERED: ZOFRAN TAB 4 MG ONE (13:11)
[2020-03-24 13:28] LABS: EOSINOPHILS % (AUTO) 0.5 % (0.9-2.9); HEMATOCRIT 23.5 % (36.0-47.0); HEMOGLOBIN 7.1 g/dL (12.0-16.0); LYMPHOCYTES # (AUTO) 0.7 X10^3/uL (1.3-2.9); LYMPHOCYTES % (AUTO) 14.1 % (21.0-51.0); MEAN CORPUSCULAR HGB CONC 30.1 g/dL (33.0-35.0); MONOCYTES # (AUTO) 0.3 x10^3/uL (0.3-0.8); MONOCYTES % (AUTO) 5.4 % (0.0-13.0); NEUTROPHILS # (AUTO) 3.8 x10^3/uL (2.2-4.8); PLATELET COUNT 434 X10^3/uL (150.0-450.0); RED BLOOD COUNT 3.21 X10^6/uL (3.5-5.4); RED CELL DISTRIBUTION WIDTH 19.1 % (11.6-16.5); WHITE BLOOD COUNT 4.8 X10^3/uL (3.6-10.0)
[2020-03-24 13:33] LABS: ALANINE AMINOTRANSFERASE 10 Units/L (12-78); ALBUMIN 3.4 g/dL (3.4-5.0); ALKALINE PHOSPHATASE 80 Units/L (46-116); ASPARTATE AMINO TRANSFERASE 21 Units/L (15-37); BLOOD UREA NITROGEN 9 mg/dL (7-18); CALCIUM 8.8 mg/dL (8.5-10.1); CARBON DIOXIDE 25.4 mmol/L (21-32); CHLORIDE 102 mmol/L (98-107); CREATININE 1.02 mg/dL (0.55-1.02); SODIUM 138 mmol/L (136-145); TOTAL PROTEIN 7.5 g/dL (6.4-8.2); eGFR NON BLACK RACES 57 (>60)
[2020-03-24] MEDS ORDERED: NS 500 ML IV 500 ML IV ONE ×2 (13:35→22:55)
[2020-03-24 14:00] LABS: PLATELET MORPHOLOGY COMMENT NORMAL (NORMAL)
[2020-03-24 14:01] LABS: ANISOCYTOSIS SLIGHT; HYPOCHROMASIA 1+; MICROCYTOSIS SLIGHT
--- NOTE | 2020-03-24 15:37 | RAD ---
ACUTE ABDOMEN SERIESHISTORY:VOMITING, COUGHStudy: Frontal view of the chest, flat and upright views of the abdomenComparison:NoneFindings:Cardiomediastinal silhouette is normal in size .No focal consolidations, pleural effusions or pneumothorax.Flat and upright views of the abdomen demonstrates a normal bowel gas pattern.No free air..No abnormal calcifications or abnormal soft tissue shadows. No acute bony abnormalities.IMPRESSION:1. No acute cardiopulmonary disease.2. No evidence for acute abdominal pathology.Electronically signed by: SHASHI GE (Mar 24, 2020 15:35:33)
[2020-03-24] MEDS ORDERED: NS 1000 ML 1,000 ML ONE (16:52)
[2020-03-24] MEDS: NS 1000 ML 1,000 ML IV SCH (16:54)
[2020-03-24] MEDS ORDERED: TYLENOL 325 MG TAB PO ONE (19:59)
[2020-03-24] MEDS ORDERED: BENADRYL INJ 50 MG VIAL IVP ONE (19:59)
[2020-03-24] MEDS: LIPITOR TAB 40 MG PO SCH (23:20)
[2020-03-24] MEDS: PROTONIX TAB 40 MG PO SCH (23:20)
[2020-03-24] MEDS: TAMBOCOR PO SCH (23:21)
[2020-03-25 05:02] LABS: BASOPHILS % (AUTO) 0.8 % (0.2-1.0); EOSINOPHILS # (AUTO) 0.1 x10^3/uL (0.0-0.2); EOSINOPHILS % (AUTO) 3.1 % (0.9-2.9); HEMATOCRIT 30.5 % (36.0-47.0); HEMOGLOBIN 9.6 g/dL (12.0-16.0); LYMPHOCYTES % (AUTO) 26.7 % (21.0-51.0); MEAN CORPUSCULAR HEMOGLOBIN 24.3 pg (27.0-34.0); MEAN CORPUSCULAR HGB CONC 31.4 g/dL (33.0-35.0); MEAN CORPUSCULAR VOLUME 77.4 fL (80.0-100.0); MEAN PLATELET VOLUME 7.9 fL (7.4-11.0); MONOCYTES # (AUTO) 0.3 x10^3/uL (0.3-0.8); MONOCYTES % (AUTO) 8.7 % (0.0-13.0); NEUTROPHILS # (AUTO) 2.3 x10^3/uL (2.2-4.8); NEUTROPHILS % (AUTO) 60.7 % (42.0-75.0); PLATELET COUNT 360 X10^3/uL (150.0-450.0); RED BLOOD COUNT 3.95 X10^6/uL (3.5-5.4); RED CELL DISTRIBUTION WIDTH 20.6 % (11.6-16.5); WHITE BLOOD COUNT 3.7 X10^3/uL (3.6-10.0)
[2020-03-25 05:05] LABS: BLOOD UREA NITROGEN 9 mg/dL (7-18); CALCIUM 8.4 mg/dL (8.5-10.1); CHLORIDE 105 mmol/L (98-107); CREATININE 0.93 mg/dL (0.55-1.02); SODIUM 140 mmol/L (136-145); eGFR NON BLACK RACES > 60 (>60)
[2020-03-25 05:34] LABS: IRON 49 ug/dL (50-175)
[2020-03-25] MEDS: NS 1000 ML 1,000 ML IV SCH ×3 (06:16→18:22)
[2020-03-25 06:21] LABS: ANISOCYTOSIS 1+; HYPOCHROMASIA SLIGHT; MICROCYTOSIS SLIGHT; PLATELET MORPHOLOGY COMMENT NORMAL (NORMAL)
[2020-03-25] MEDS ORDERED: K-DUR TAB 20 MEQ PO PRN (07:31)
[2020-03-25] MEDS ORDERED: KLOR-CON PO PRN (07:31)
[2020-03-25] MEDS ORDERED: K-RIDER 10 MEQ/NS 100 ML 10 MEQ/100 ML BAG IV PRN (07:31)
[2020-03-25] MEDS ORDERED: MICRO K EXTEN CAP 10 MEQ PO PRN (07:31)
[2020-03-25] MEDS ORDERED: POTASSIUM CHL 40 MEQ/NS 0.45% 500 ML IV PRN (07:31)
[2020-03-25] MEDS ORDERED: MAGNESIUM SULFATE 1 GRAM/100 mL PREMIX 1 GM/100 ML BAG IV PRN (07:31)
[2020-03-25] MEDS ORDERED: POTASSIUM CHL 60 MEQ/NS 0.45% 500 ML IV PRN (07:31)
[2020-03-25] MEDS ORDERED: POTASSIUM CHLORIDE LIQ 20 MEQ UDC PO PRN (07:31)
[2020-03-25] MEDS: FLEXERIL TAB 10 MG PO SCH ×2 (08:16→21:15)
[2020-03-25] MEDS: BUSPAR PO SCH ×2 (08:16→21:15)
[2020-03-25] MEDS: ZESTRIL TAB 10 MG PO SCH (08:17)
[2020-03-25] MEDS: PROTONIX TAB 40 MG PO SCH (08:17)
[2020-03-25] MEDS: TAMBOCOR PO SCH ×2 (08:17→21:15)
[2020-03-25] MEDS: ATIVAN TAB 1 MG PO PRN (08:25)
--- NOTE | 2020-03-25 09:22 | DR.H&P ---
H&P History & Physical for Day of: H&P Date: 03/25/20 Chief Complaint Chief Complaint: weakness, N/V, cough Allergies Allergies Allergy/AdvReac Type Severity Reaction Status Date / Time No Known Drug Allergies Allergy Verified 04/07/19 15:01 History of Present Illness History of Present Illness: Ms. Alegria is a 69y/o female with a PMH of HTN, anxiety, HLD, atrial fibrillation and GERD presented with weakness, N/V and cough. She was noted to be severely anemic with Hgb 7.1 on admission. Her prev Hgb was 6.9. She reports hx of anemia in the past but did not require blood transfusions. She had EGD years ago, no colonoscopy. Denies hx of ulcers/bleeding. Denies dark stools or bright red blood. She was transfused 2 units PRBCs overnight. FOBT (-) Labs: Hgb 9.6 s/p 2 units, Iron 49 Ferritin 7 FOBT(-) Plan: monitor H/H, start iron supplements BID, denies active bleeding, will add prednisone and duonebs due to cough and wheezing on exam. Will get CXR. Will need outpatient work up including EGD/Colonoscopy, set up f/u with Dr. Gilbert. Continue to monitor labs. Past Medical History Past Medical History: Anxiety, Depression, Dyslipidemia, GERD and Hypertension Past Surgical History Surgical History: Hysterectomy and Ortho Surgery Family History Family Medical History: Diabetes Mellitus, Cancer, [place], Coronary Artery Disease, Heart Failure and Hypertension Social History Does patient currently use any type of tobacco product: No Have you used tobacco products in the last 12 months: No Type of Tobacco Use: None Does any household member use tobacco: Yes Alcohol Use: None Drug Use: None Prescription drug monitoring program results: PDMP reviewed and no concerns identified Medications Home Medications: No Known Drug Allergies Allergy (Verified 04/07/19 15:01) CONTINUE taking the following medications atorvastatin 40 mg PO QHS 03/24/20 [History] buspirone 15 mg PO BID 03/24/20 [History] clopidogrel 75 mg PO DAILY 03/24/20 [History] cyclobenzaprine 10 mg PO BID 03/24/20 [History] diclofenac sodium 75 mg PO BID 03/24/20 [History] estradiol 1 mg PO DAILY 03/24/20 [History] flecainide 50 mg PO BID 03/24/20 [History] lisinopril 30 mg PO DAILY 03/24/20 [History] lorazepam 2 mg PO BID PRN 03/24/20 [History] pantoprazole 40 mg PO DAILY 03/24/20 [History] Labs Result Diagrams: 03/25/20 04:20 03/25/20 04:20 Labs: Laboratory WBC 3.7 X10^3/uL (3.6-10.0) 03/25/20 04:20 RBC 3.95 X10^6/uL (3.5-5.4) 03/25/20 04:20 Hgb 9.6 g/dL (12.0-16.0) L D 03/25/20 04:20 Hct 30.5 % (36.0-47.0) L 03/25/20 04:20 MCV 77.4 fL (80.0-100.0) L 03/25/20 04:20 MCH 24.3 pg (27.0-34.0) L 03/25/20 04:20 MCHC 31.4 g/dL (33.0-35.0) L 03/25/20 04:20 RDW 20.6 % (11.6-16.5) H 03/25/20 04:20 Plt Count 360 X10^3/uL (150.0-450.0) 03/25/20 04:20 Plt Count Comment Adequate (ADEQUATE) 03/25/20 04:20 MPV 7.9 fL (7.4-11.0) 03/25/20 04:20 Neut % (Auto) 60.7 % (42.0-75.0) 03/25/20 04:20 Lymph % (Auto) 26.7 % (21.0-51.0) 03/25/20 04:20 [place] % (Auto) 8.7 % (0.0-13.0) 03/25/20 04:20 Eos % (Auto) 3.1 % (0.9-2.9) H 03/25/20 04:20 Baso % (Auto) 0.8 % (0.2-1.0) 03/25/20 04:20 Neut # (Auto) 2.3 x10^3/uL (2.2-4.8) 03/25/20 04:20 Lymph # (Auto) 1.0 X10^3/uL (1.3-2.9) L 03/25/20 04:20 [place] # (Auto) 0.3 x10^3/uL (0.3-0.8) 03/25/20 04:20 Eos # (Auto) 0.1 x10^3/uL (0.0-0.2) 03/25/20 04:20 Baso # (Auto) 0.0 X10^3/uL (0.0-0.1) 03/25/20 04:20 Absolute Nucleated RBC 0.3 /100WBC 03/25/20 04:20 Plt Morphology Comment Normal (NORMAL) 03/25/20 04:20 RBC Morphology Abnormal (NORMAL) A 03/25/20 04:20 Hypochromasia Slight A 03/25/20 04:20 Anisocytosis 1+ A 03/25/20 04:20 Microcytosis Slight A 03/25/20 04:20 Sodium 140 mmol/L (136-145) 03/25/20 04:20 Corrected Sodium TNP 03/25/20 04:20 Potassium 3.6 mmol/L (3.5-5.1) 03/25/20 04:20 Chloride 105 mmol/L (98-107) 03/25/20 04:20 Carbon Dioxide 24.0 mmol/L (21-32) 03/25/20 04:20 BUN 9 mg/dL (7-18) 03/25/20 04:20 Creatinine 0.93 mg/dL (0.55-1.02) 03/25/20 04:20 Est GFR (MDRD) Af Amer > 60 (>60) 03/25/20 04:20 Est GFR (MDRD) Non-Af > 60 (>60) 03/25/20 04:20 Glucose 61 mg/dL (65-99) L 03/25/20 04:20 Calcium 8.4 mg/dL (8.5-10.1) L 03/25/20 04:20 Corrected Calcium TNP 03/24/20 13:12 Magnesium 1.9 mg/dL (1.7-2.9) 03/25/20 04:20 Iron 49 ug/dL (50-175) L 03/25/20 04:20 Transferrin 330 mg/dL (202-364) 03/25/20 04:20 Ferritin 7 ng/mL (8-252) L 03/25/20 04:20 Total Bilirubin 0.20 mg/dL (0.2-1.0) 03/24/20 13:12 AST 21 Units/L (15-37) 03/24/20 13:12 ALT 10 Units/L (12-78) L 03/24/20 13:12 Alkaline Phosphatase 80 Units/L (46-116) 03/24/20 13:12 Total Protein 7.5 g/dL (6.4-8.2) 03/24/20 13:12 Albumin 3.4 g/dL (3.4-5.0) 03/24/20 13:12 Globulin 4.1 g/dL (2.5-4.5) 03/24/20 13:12 Albumin/Globulin Ratio 0.8 Ratio (1.1-2.1) L 03/24/20 13:12 Vitamin B12 1300 pg/mL (193-986) H 03/25/20 04:20 Folate 19.1 ng/mL (>8.6) 03/25/20 04:20 Stool Description Fob tube 03/24/20 14:49 Stl Occult Blood (IFOB) Negative (NEGATIVE) 03/24/20 14:49 SARS-CoV-2 (PCR) Negative (NEGATIVE) 03/24/20 15:46 Blood Type O POSITIVE 03/24/20 12:51 Antibody Screen Negative 03/24/20 12:51 Crossmatch See Detail 03/24/20 12:51 Review of Systems Constitutional: Weakness Eyes: No Symptoms Reported ENT: Nose Congestion Respiratory: Cough and SOB with Excertion Cardiovascular: No Symptoms Reported Gastrointestinal: Nausea Genitourinary: No Symptoms Reported Musculoskeletal: No Symptoms Reported Skin: No Symptoms Reported Neurological: No Symptoms Reported Physical Exam Vital Signs: Temperature 97.8 F Pulse Rate [Left] 83 Pulse Rate 116 Respiratory Rate 20 Blood Pressure [Left Arm] 123/61 Blood Pressure 130/68 O2 Sat by Pulse Oximetry 97 Oriented: Normal Eyes: Normal Ear: Normal Throat: Normal Respiratory: RLL Exp. Wheeze and LLL Exp. Wheeze Cardiovascular: Normal Auscultation: Bowel Sounds: Normal Palpation: Normal Tenderness: Normal Skin: Normal Musculoskeletal: Normal Psychiatric: Normal Mood Description: Calm Affect: Normal Speech Pattern: Clear and Appropriate Assessment/Plan (1) FABRICIO (iron deficiency anemia): Qualifiers: Iron deficiency anemia type: unspecified iron deficiency Qualified Code(s): D50.9 - Iron deficiency anemia, unspecified Status: Acute (2) Anemia: Qualifiers: Anemia type: iron deficiency Iron deficiency anemia type: unspecified iron deficiency Qualified Code(s): D50.9 - Iron deficiency anemia, unspecified Status: Acute (3) Anxiety: Status: Acute (4) HTN (hypertension): Qualifiers: Hypertension type: essential hypertension Qualified Code(s): I10 - Essential (primary) hypertension Status: Acute Review H&P Reviewed: Yes Patient was examined?: Yes
[2020-03-25] MEDS: PREDNISONE TAB 20 MG PO SCH (10:09)
--- NOTE | 2020-03-25 11:06 | RAD ---
HISTORYCOUGH, WHEEZINGSTUDYCHEST, 1 VIEWCOMPARISONAcute abdomen series from 1 day priorTECHNIQUEAP view of the chestFINDINGSThe cardiac and mediastinal contours are within normal limits. The lungs are clear without focal consolidation or segmental collapse. No pleural effusion or pneumothorax.IMPRESSIONNo acute pulmonary process.Electronically signed by: Jayden Hernandez (Mar 25, 2020 11:05:42)
[2020-03-25] MEDS: DUONEB 0.5 MG/3 MG (3 mL) NEB SCH ×3 (11:32→21:07)
[2020-03-25] MEDS: PLAVIX PO SCH (11:55)
[2020-03-25] MEDS ORDERED: TYLENOL 325 MG TAB PO PRN (16:13)
[2020-03-25] MEDS ORDERED: TYLENOL 325 MG TAB PO ONE (16:30)
[2020-03-25] MEDS: FERROUS GLUCONATE PO SCH (16:37)
[2020-03-25] MEDS: LIPITOR TAB 40 MG PO SCH (21:15)
[2020-03-26] MEDS: DUONEB 0.5 MG/3 MG (3 mL) NEB SCH (06:15)
[2020-03-26 06:47] LABS: BASOPHILS % (AUTO) 0.4 % (0.2-1.0); EOSINOPHILS % (AUTO) 0.1 % (0.9-2.9); HEMATOCRIT 28.3 % (36.0-47.0); HEMOGLOBIN 8.9 g/dL (12.0-16.0); LYMPHOCYTES # (AUTO) 0.5 X10^3/uL (1.3-2.9); LYMPHOCYTES % (AUTO) 11.4 % (21.0-51.0); MEAN CORPUSCULAR HEMOGLOBIN 24.5 pg (27.0-34.0); MEAN CORPUSCULAR HGB CONC 31.5 g/dL (33.0-35.0); MEAN CORPUSCULAR VOLUME 77.7 fL (80.0-100.0); MEAN PLATELET VOLUME 8.2 fL (7.4-11.0); MONOCYTES # (AUTO) 0.5 x10^3/uL (0.3-0.8); MONOCYTES % (AUTO) 11.1 % (0.0-13.0); NEUTROPHILS # (AUTO) 3.6 x10^3/uL (2.2-4.8); PLATELET COUNT 313 X10^3/uL (150.0-450.0); RED BLOOD COUNT 3.64 X10^6/uL (3.5-5.4); RED CELL DISTRIBUTION WIDTH 20.4 % (11.6-16.5); WHITE BLOOD COUNT 4.6 X10^3/uL (3.6-10.0)
[2020-03-26 06:50] LABS: BLOOD UREA NITROGEN 11 mg/dL (7-18); CALCIUM 8.4 mg/dL (8.5-10.1); CARBON DIOXIDE 25.9 mmol/L (21-32); CHLORIDE 108 mmol/L (98-107); COR NA(FOR HYPERGLY) 142 mmol/L (136-145); CREATININE 0.66 mg/dL (0.55-1.02); SODIUM 141 mmol/L (136-145); eGFR NON BLACK RACES > 60 (>60)
[2020-03-26] MEDS: FERROUS GLUCONATE PO SCH (07:02)
[2020-03-26] MEDS: NS 1000 ML 1,000 ML IV SCH (07:03)
[2020-03-26 07:40] LABS: ANISOCYTOSIS 1+; PLATELET MORPHOLOGY COMMENT NORMAL (NORMAL)
[2020-03-26 07:41] LABS: HYPOCHROMASIA SLIGHT; MICROCYTOSIS SLIGHT
[2020-03-26 08:21] VITALS: BP 132/78
[2020-03-26] MEDS ORDERED: ESTRACE PO SCH (09:00)
[2020-03-26] MEDS: PROTONIX TAB 40 MG PO SCH (11:00)
[2020-03-26] MEDS: TAMBOCOR PO SCH (11:00)
[2020-03-26] MEDS: PREDNISONE TAB 20 MG PO SCH (11:00)
[2020-03-26] MEDS: FLEXERIL TAB 10 MG PO SCH (11:00)
[2020-03-26] MEDS: ZESTRIL TAB 10 MG PO SCH (11:00)
[2020-03-26] MEDS: PLAVIX PO SCH (11:00)
[2020-03-26] MEDS: BUSPAR PO SCH (11:00)
[2020-03-26] MEDS: ATIVAN TAB 1 MG PO PRN (11:45)
== END 2020-03-26 12:10 | disposition home or self-care (01) | DRG 812 ==
LOC: MED/SURG 11:36 → ER 11:36 → OBSVTOIN 15:42 → MED/SURG 17:53
PROVIDERS: ADMIT Internal Medicine; ATTEND Internal Medicine
DX: D50.8 Other iron deficiency anemias; E78.2 Mixed hyperlipidemia; R78.89 Finding of other specified substances, not normally found in blood; I48.91 Unspecified atrial fibrillation; R05 Cough; I10 Essential (primary) hypertension; F41.8 Other specified anxiety disorders; R06.02 Shortness of breath; K21.9 Gastro-esophageal reflux disease without esophagitis; Z86.73 Personal history of transient ischemic attack (TIA), and cerebral infarction without residual deficits; Z20.828 Contact with and (suspected) exposure to other viral communicable diseases; R11.10 Vomiting, unspecified

== ENCOUNTER 2020-09-22 14:10 | Observation (INO) ==
[2020-09-22 14:23] VITALS: BMI 21.1
--- NOTE | 2020-09-22 14:27 | DR.CP ---
HPI Time Seen Time Seen by Provider: 09/22/20 14:23 PCP Primary Care Physician: [place] HPI Comment HPI Comment: PATIENT IS 70YR OLD FEMALE WITH HISTORY OF HYPERTENSION AND ARTHRTIS IN ER WITH HEART RACING. PATIENT SAID SHE IS NOT FEELING GOOD. SHE IS W EAK AND FEEL SHE MAY PASS OUT. NO FEVER, COLD, COUGH OR CONGESTION. HAVING 10/10 PRESSURE PAIN IN THE CHEST AND ACHING PAIN ALL OVER. HAVE HAD SIMILAR PAIN AND RAPID HEART RATE PREVIOUSLY. PAIN IS ASSOCIATED WITH SOB ALSO. THE HOME HEALTH NURSE EVALUATED PATIENT AND REFER HER TO ER VIA EMS. Complaint Chief Complaint Doctor Comments: RAPID HEART RATE NOTED TODAY. Chief Complaint:: it was discovered by home health nurse that pt had a heart rate the was greater than 150. complains of chest pressure. states she has had some shortness of breath COVID-19 Coronavirus risk:travel/contact w/high risk person: No Has patient experienced Coronavirus symptoms: No Reviewed Nurses Notes Review: Yes Source History Provided: Patient and Family Member Mode of Arrival Mode of Arrival: Ambulatory Timing Onset of Chief Complaint: 09/22/20 Came on: Suddenly Duration Duration: Constant Duration: Hours Location Location of Chest Pain: Left and Chest Chest Pain Radiation Location: None and Back Context Onset: At rest Cardiac Risk Factors: HTN PE Risk Factors: None History of: None Prehospital Care: None Quality Quality: Pressure like and Aching Severity Severity: Moderate Modifying Factors Worsens: Exertion Impoves: Rest Associated Signs and Symptoms Associated Signs and Symptoms: Shortness of Breath and Palpitations PMH PMH Past Medical History: Yes Past Medical History: CHF and Hypertension Past Surgical History: Yes Surgical History: Hysterectomy and Ortho Surgery Family History History of Family Medical Conditions: Yes Family Medical History: Diabetes Mellitus, Cancer, [place], Coronary Artery Disease, Heart Failure and Hypertension Social History Alcohol Use: None Do you use any recreational Drugs:: No Lives With: Family Lives Where: Home Travel Risk Coronavirus risk:travel/contact w/high risk person: No Has patient experienced Coronavirus symptoms: No Infectious screening In the last 2 months have you had wt loss of >10#?: NO Have you had fever, night sweats or hemotysis?: No Have you traveled outside the country in the last 6 months?: No Isolation: Standard ROS Review of Systems Constitutional: See HPI, Weakness and Fatigue; negative Fever Eyes: No Symptoms Reported and See HPI ENTM: No Symptoms Reported and See HPI; negative Nose Discharge and Nose Congestion Respiratoy: See HPI, Moist Cough and Short of Breath; negative Wheezing Cardiovascular: No Symptoms Reported, See HPI, Chest Pain and Palpitations; n egative Edema Gastrointestinal/Abdominal: See HPI and Nausea; negative Abdominal Pain, Diarrhea and Vomiting Genitourinary: No Symptoms Reported and See HPI; negative Dysuria and Hematuria Neurological: See HPI, Weakness and Dizziness; negative Headache Musculoskeletal: No Symptoms Reported, See HPI and Back Pain; negative Muscle Pain Integumentary: No Symptoms Reported and See HPI; negative Change in Color, Rash and Juandice Hematologic/Lymphatic: See HPI and Easy Bruising; negative Swollen Glands Endocrine: No Symptoms Reported and See HPI; negative Increased Thirst and Increased Urine Psychiatric: No Symptoms Reported and See HPI All Other Systems: Reviewed and Negative PE Vitals Vitals: Temperature 98.6 F Pulse Rate 92 Respiratory Rate 17 Blood Pressure [Left Arm] 132/78 Blood Pressure [Right Arm] 136/90 Blood Pressure 153/75 O2 Sat by Pulse Oximetry 97 General Limitations: No Limitations General Appearance: Alert and In No Apparent Distress Head Head Exam: Normal Inspection Eyes Eye exam: Normal Appearance and PERRL ENT ENT Exam: Normal Exam, Normal Oropharynx, Normal External Ear Exam and TM's Normal Bilaterally Chest Chest Inspection: Normal Inspection and Symmetric Chest Wall Rise; negative Tenderness Respiratory Respiratory Exam: Normal Lung Sounds Bilat; negative Accessory Muscle Use, Chest Wall Tenderness and Respiratory Distress Respiratory Exam: Bilateral: Rhonchi Cardiovascular Cardiovascular Exam: Tachycardia and Normal Heart Sounds; negative Systolic Murmur and Diastolic Murmur Pulse: Normal Edema: Normal Abdominal Exam Abdominal Exam: Normal Inspection, Normal Bowel Sounds and Soft; negative Tenderness Extremities Extremities Exam: Normal Inspection and Normal Capillary Refill; negative Tenderness, Edema and Calf Tenderness Back Back Exam: Normal Inspection; negative (R) CVA Tenderness and (L) CVA Tenderness Neurologic Neurological Exam: Alert, Oriented X3 and CN II-XII Intact; negative Motor Sensory Deficit Psychiatric Psychiatric Exam: Normal Affect and Normal Mood Skin Skin Exam: Warm, Dry, Intact and Normal Color MDM Additional Information Additional Information Obtained From: Old Records Differential Diagnosis Differential Diagnosis: Angina (ARRHYTHMIA, PALPITATION, HYPOTHYRIODISM.), Chest Wall Pain, CHF, Costochondritis, Myocardial Infarction, Pericarditis, Pleuritis, Pneumonia and Pneumothorax COURSE Treatment Treatment: SEE ORDERS. Consultation Consultation Comments: DISCUSSED PATIENT WITH DR. ROSARIO. HE WILL ADMIT MICHAEL CARDONA. Education/Counseling Education/Counseling: Patient Educated On: Diagnosis ROR Labs Reviewed Laboratory Results Reviewed?: Yes Result Diagrams: 09/22/20 14:30 09/22/20 14:30 Laboratory: WBC 7.1 X10^3/uL (3.6-10.0) 09/22/20 14: RBC 3.56 X10^6/uL (3.5-5.4) 09/22/20 14: Hgb 8.2 g/dL (12.0-16.0) L 09/22/20 14: Hct 27.8 % (36.0-47.0) L 09/22/20 14: MCV 78.1 fL (80.0-100.0) L 09/22/20 14: MCH 23.1 pg (27.0-34.0) L 09/22/20 14: MCHC 29.5 g/dL (33.0-35.0) L 09/22/20 14: RDW 20.3 % (11.6-16.5) H 09/22/20 14: Plt Count 424 X10^3/uL (150.0-450.0) 09/22/20 14: Plt Count Comment Adequate (ADEQUATE) 09/22/20 14: MPV 8.2 fL (7.4-11.0) 09/22/20 14: Neut % (Auto) 67.2 % (42.0-75.0) 09/22/20 14: Lymph % (Auto) 23.6 % (21.0-51.0) 09/22/20 14: [place] % (Auto) 7.7 % (0.0-13.0) 09/22/20 14: Eos % (Auto) 0.9 % (0.9-2.9) 09/22/20 14: Baso % (Auto) 0.6 % (0.2-1.0) 09/22/20 14:30 Neut # (Auto) 4.7 x10^3/uL (2.2-4.8) 09/22/20 14: Lymph # (Auto) 1.7 X10^3/uL (1.3-2.9) 09/22/20 14:30 [place] # (Auto) 0.5 x10^3/uL (0.3-0.8) 09/22/20 14:30 Eos # (Auto) 0.1 x10^3/uL (0.0-0.2) 09/22/20 14:30 Baso # (Auto) 0.0 X10^3/uL (0.0-0.1) 09/22/20 14:30 Absolute Nucleated RBC 0.2 /100WBC 09/22/20 14:30 Plt Morphology Comment Normal (NORMAL) 09/22/20 14:30 RBC Morphology Abnormal (NORMAL) A 09/22/20 14:30 Poikilocytosis 1+ A 09/22/20 14:30 Anisocytosis 1+ A 09/22/20 14:30 Sodium 142 mmol/L (136-145) 09/22/20 14:30 Corrected Sodium TNP 09/22/20 14:30 Potassium 4.0 mmol/L (3.5-5.1) 09/22/20 14:30 Chloride 105 mmol/L (98-107) 09/22/20 14:30 Carbon Dioxide 27.3 mmol/L (21-32) 09/22/20 14:30 BUN 11 mg/dL (7-18) 09/22/20 14:30 Creatinine 0.90 mg/dL (0.55-1.02) 09/22/20 14:30 Est GFR (MDRD) Af Amer > 60 (>60) 09/22/20 14:30 Est GFR (MDRD) Non-Af > 60 (>60) 09/22/20 14:30 Glucose 98 mg/dL (65-99) 09/22/20 14:30 Calcium 8.5 mg/dL (8.5-10.1) 09/22/20 14:30 Corrected Calcium TNP 09/22/20 14:30 Total Bilirubin 0.10 mg/dL (0.2-1.0) L 09/22/20 14:30 AST 14 Units/L (15-37) L 09/22/20 14:30 ALT 10 Units/L (12-78) L 09/22/20 14:30 Alkaline Phosphatase 70 Units/L (46-116) 09/22/20 14:30 Creatine Kinase 29 Units/L (26-192) 09/22/20 14:30 CK-MB (CK-2) < 1.0 ng/mL (0-4.0) 09/22/20 14:30 CK/CKMB % Calc 3.5 % (<4) 09/22/20 14:30 Troponin I < 0.02 ng/mL (0-1.5) 09/22/20 14:30 B-Natriuretic Peptide 240 pg/mL (0-79) H 09/22/20 14:30 Total Protein 7.2 g/dL (6.4-8.2) 09/22/20 14:30 Albumin 3.4 g/dL (3.4-5.0) 09/22/20 14:30 Globulin 3.8 g/dL (2.5-4.5) 09/22/20 14:30 Albumin/Globulin Ratio 0.9 Ratio (1.1-2.1) L 09/22/20 14:30 TSH 3rd Generation 1.674 uIU/mL (0.358-3.74) 09/22/20 14:30 SARS CoV-2 RNA Rapid PATRICIO Negative (NEGATIVE) 09/22/20 16:07 XRAY XRAY Interpreted by: Radiologist (REPORT NOTED AND DISCUSSED WITH PATIENT.) and Self EKG Rate: 145 [place]: Normal Rhythm: ST Block: 1 Hypertrophy: None ST: Nonsp Opioid Opioid Risk Tool Age (Maxi box if 16-45): No History of Preadolescent Sexual Abuse: No Total: 0 Total Score Risk Category: Low Risk Copyright: Xander LIAO predicting aberrant behaviors Diagnosis Discharge Problem: Tachycardia Chest pain Qualifiers: Chest pain type: precordial pain Qualified Code(s): R07.2 - Precordial pain Anemia Qualifiers: Anemia type: unspecified type Qualified Code(s): D64.9 - Anemia, unspecified Instructions Forms: Precautions for COVID19 Patient Portal Social Distancing
[2020-09-22 14:55] LABS: BASOPHILS % (AUTO) 0.6 % (0.2-1.0); EOSINOPHILS # (AUTO) 0.1 x10^3/uL (0.0-0.2); EOSINOPHILS % (AUTO) 0.9 % (0.9-2.9); HEMATOCRIT 27.8 % (36.0-47.0); HEMOGLOBIN 8.2 g/dL (12.0-16.0); LYMPHOCYTES # (AUTO) 1.7 X10^3/uL (1.3-2.9); LYMPHOCYTES % (AUTO) 23.6 % (21.0-51.0); MEAN CORPUSCULAR HEMOGLOBIN 23.1 pg (27.0-34.0); MEAN CORPUSCULAR HGB CONC 29.5 g/dL (33.0-35.0); MEAN CORPUSCULAR VOLUME 78.1 fL (80.0-100.0); MEAN PLATELET VOLUME 8.2 fL (7.4-11.0); MONOCYTES # (AUTO) 0.5 x10^3/uL (0.3-0.8); MONOCYTES % (AUTO) 7.7 % (0.0-13.0); NEUTROPHILS # (AUTO) 4.7 x10^3/uL (2.2-4.8); NEUTROPHILS % (AUTO) 67.2 % (42.0-75.0); PLATELET COUNT 424 X10^3/uL (150.0-450.0); RED BLOOD COUNT 3.56 X10^6/uL (3.5-5.4); RED CELL DISTRIBUTION WIDTH 20.3 % (11.6-16.5); WHITE BLOOD COUNT 7.1 X10^3/uL (3.6-10.0)
--- NOTE | 2020-09-22 14:58 | RAD ---
CHEST, 1 VIEWHISTORY: SOB, TACHYCARDIA, CHEST PRESSUREStudy: Single view of the chest.Comparison:NoneFindings:The cardiomediastinal silhouette is normal.No focal consolidations, pleural effusions or pneumothorax. Osseous structures demonstrate no acute abnormality.IMPRESSION:1. No acute cardiopulmonary process.Electronically signed by: SHASHI GE (Sep 22, 2020 14:56:32)
[2020-09-22 15:08] LABS: ANISOCYTOSIS 1+; PLATELET MORPHOLOGY COMMENT NORMAL (NORMAL); POIKILOCYTOSIS 1+
[2020-09-22 15:10] LABS: BLOOD UREA NITROGEN 11 mg/dL (7-18); CALCIUM 8.5 mg/dL (8.5-10.1); CARBON DIOXIDE 27.3 mmol/L (21-32); CHLORIDE 105 mmol/L (98-107); SODIUM 142 mmol/L (136-145); TROPONIN I < 0.02 ng/mL (0-1.5); eGFR NON BLACK RACES > 60 (>60)
[2020-09-22 15:14] LABS: ALANINE AMINOTRANSFERASE 10 Units/L (12-78); ALBUMIN 3.4 g/dL (3.4-5.0); ALKALINE PHOSPHATASE 70 Units/L (46-116); ASPARTATE AMINO TRANSFERASE 14 Units/L (15-37); CKMB % 3.5 % (<4); CREATINE KINASE 29 Units/L (26-192); CREATINE KINASE MB < 1.0 ng/mL (0-4.0); TOTAL PROTEIN 7.2 g/dL (6.4-8.2)
[2020-09-22] MEDS: NS 1000 ML 1,000 ML IV SCH (17:50)
[2020-09-22 20:19] LABS: BILIRUBIN,URINE NEGATIVE (NEGATIVE); BLOOD/HEMOGLOBIN,URINE NEGATIVE (NEGATIVE); GLUCOSE, URINE NEGATIVE (NEGATIVE); KETONES,URINE NEGATIVE (NEGATIVE); LEUKOCYTE ESTERASE ,URINE NEGATIVE (NEGATIVE); NITRITES,URINE NEGATIVE (NEGATIVE); PROTEIN,URINE NEGATIVE (NEGATIVE); UROBILINOGEN,URINE NORMAL (NORMAL)
[2020-09-22 20:29] LABS: APPEARANCE,URINE CLEAR (CLEAR); COLOR,URINE STRAW (YELLOW)
[2020-09-22] MEDS: ATIVAN TAB 1 MG PO PRN (20:43)
[2020-09-22] MEDS: BUSPAR PO SCH (20:43)
[2020-09-22] MEDS: TAMBOCOR PO SCH (20:43)
[2020-09-22] MEDS: FLEXERIL TAB 10 MG PO SCH (20:43)
[2020-09-22 20:50] LABS: CKMB % 3.9 % (<4); CREATINE KINASE 26 Units/L (26-192); CREATINE KINASE MB < 1.0 ng/mL (0-4.0); TROPONIN I < 0.02 ng/mL (0-1.5)
[2020-09-22] MEDS: PATIENT'S HOME MEDICATION (Diclofenac Sodium 75 mg Tablet,Delayed Release (Dr/Ec)) PO SCH (21:15)
[2020-09-23 03:02] LABS: BASOPHILS % (AUTO) 0.4 % (0.2-1.0); EOSINOPHILS # (AUTO) 0.1 x10^3/uL (0.0-0.2); EOSINOPHILS % (AUTO) 2.1 % (0.9-2.9); HEMATOCRIT 24.6 % (36.0-47.0); HEMOGLOBIN 7.3 g/dL (12.0-16.0); LYMPHOCYTES # (AUTO) 1.1 X10^3/uL (1.3-2.9); LYMPHOCYTES % (AUTO) 32.3 % (21.0-51.0); MEAN CORPUSCULAR HGB CONC 29.7 g/dL (33.0-35.0); MEAN CORPUSCULAR VOLUME 77.6 fL (80.0-100.0); MEAN PLATELET VOLUME 8.1 fL (7.4-11.0); MONOCYTES # (AUTO) 0.3 x10^3/uL (0.3-0.8); MONOCYTES % (AUTO) 8.9 % (0.0-13.0); NEUTROPHILS # (AUTO) 1.9 x10^3/uL (2.2-4.8); NEUTROPHILS % (AUTO) 56.3 % (42.0-75.0); PLATELET COUNT 326 X10^3/uL (150.0-450.0); RED BLOOD COUNT 3.17 X10^6/uL (3.5-5.4); RED CELL DISTRIBUTION WIDTH 20.7 % (11.6-16.5); WHITE BLOOD COUNT 3.3 X10^3/uL (3.6-10.0)
[2020-09-23 03:12] LABS: ALANINE AMINOTRANSFERASE 10 Units/L (12-78); ALBUMIN 2.7 g/dL (3.4-5.0); ALKALINE PHOSPHATASE 59 Units/L (46-116); ASPARTATE AMINO TRANSFERASE 10 Units/L (15-37); BLOOD UREA NITROGEN 8 mg/dL (7-18); CALCIUM 7.9 mg/dL (8.5-10.1); CARBON DIOXIDE 27.5 mmol/L (21-32); CHLORIDE 109 mmol/L (98-107); CHOL/HDL RATIO 4.8 (0.0-5.0); CHOLESTEROL 229 mg/dL (0-200); COR CA(FOR HYPOALB) 8.9 mg/dL (8.5-10.1); HDL CHOLESTEROL 48 mg/dL (40-60); MAGNESIUM 1.8 mg/dL (1.7-2.9); SODIUM 144 mmol/L (136-145); TOTAL PROTEIN 5.7 g/dL (6.4-8.2); TRIGLYCERIDES 133 mg/dL (0-150); eGFR NON BLACK RACES > 60 (>60)
[2020-09-23 03:19] LABS: ANISOCYTOSIS 1+; HYPOCHROMASIA SLIGHT; PLATELET MORPHOLOGY COMMENT NORMAL (NORMAL)
[2020-09-23 03:20] LABS: CREATINE KINASE 20 Units/L (26-192); CREATINE KINASE MB < 1.0 ng/mL (0-4.0); TROPONIN I < 0.02 ng/mL (0-1.5)
[2020-09-23] MEDS: NS 1000 ML 1,000 ML IV SCH (05:29)
[2020-09-23] MEDS: BUSPAR PO SCH (08:56)
[2020-09-23] MEDS: NS 500 ML IV 500 ML IV ONE ×3 (08:56→09:53)
[2020-09-23] MEDS: PATIENT'S HOME MEDICATION (Diclofenac Sodium 75 mg Tablet,Delayed Release (Dr/Ec)) PO SCH (08:57)
[2020-09-23] MEDS: FLEXERIL TAB 10 MG PO SCH (08:58)
[2020-09-23] MEDS ORDERED: ELIQUIS PO SCH (09:00)
[2020-09-23] MEDS ORDERED: PLAVIX PO SCH (09:00)
[2020-09-23] MEDS ORDERED: LOPRESSOR TAB 25 MG PO SCH (09:00)
[2020-09-23] MEDS ORDERED: PROTONIX TAB 40 MG PO SCH (09:00)
[2020-09-23] MEDS ORDERED: ZESTRIL TAB 10 MG PO SCH (09:00)
[2020-09-23] MEDS: TAMBOCOR PO SCH (09:01)
[2020-09-23] MEDS: ATIVAN TAB 1 MG PO PRN (09:29)
[2020-09-23 12:05] VITALS: BP 121/57
[2020-09-23 14:08] LABS: HEMATOCRIT 29.9 % (36.0-47.0); HEMOGLOBIN 9.3 g/dL (12.0-16.0)
--- NOTE | 2020-09-23 15:41 | DR.SSS ---
SHORT STAY SUMMARY Admission Date Date of Admission: 09/22/20 Discharge Date Discharge Date: 09/23/20 Admission Diagnoses Admission Diagnoses: Chest pain rule out Anemia Sinus tachycardia Discharge Diagnoses Discharge Diagnoses: Anemia s/p blood transfusion Chest pain rule out Anxiety Atrial fibrillation Chief Complaint Chief Complaint: palpitations, SOB History of Present Illness History of Present Illness: Ms Lozano is a 70y/o female with a PMH of Severe anxiety, atrial fibrillation, anemia, HTN and GERD was sent to the ED after home health nurse noticed patient's HR to be elevated in 110s. Patient reports having chest tightness, palpitations and SOB. She also reports generalized weakness. Her Sx have been present for a few weeks with gradual worsening. In the ER, patient's HR was noted to be in the 150s. EKG showed sinus tachycardia, trop (- ). Patient's hgb was 8.2. She was admitted for chest pain rule out and anemia. Past Medical History Past Medical History: Anemia, Anxiety, Coronary Artery Disease, Dyslipidemia and Hypertension Additional Medical History: Atrial fibrillation Past Surgical History Surgical History: Hysterectomy and Ortho Surgery Allergies Allergies Allergy/AdvReac Type Severity Reaction Status Date / Time No Known Drug Allergies Allergy Verified 09/22/20 14:15 Medications Home Medications: No Known Drug Allergies Allergy (Verified 09/22/20 14:15) CONTINUE taking the following medications clopidogrel 75 mg PO DAILY 09/23/20 [History] estradiol 1 mg DAILY 09/23/20 [History] New Prescriptions apixaban [Eliquis] 5 mg PO BID tab 09/23/20 [Rx] clopidogrel 75 mg PO DAILY tab 09/23/20 [Rx] metoprolol tartrate 25 mg PO BID tab 09/23/20 [Rx] Family History Family Medical History: Diabetes Mellitus, Cancer, [place], Coronary Artery Disease, Heart Failure and Hypertension Social History Does any household member use tobacco: No Alcohol Use: None Drug Use: None Review of Systems Constitutional: Weakness Eyes: No Symptoms Reported ENT: No Symptoms Reported Respiratory: Shortness of Breath Cardiovascular: Chest Pain Gastrointestinal: No Symptoms Reported Genitourinary: No Symptoms Reported Musculoskeletal: No Symptoms Reported Skin: No Symptoms Reported Neurological: No Symptoms Reported Physical Exam Vital Signs: Last Vital Signs Temp 98.1 F 09/23/20 12:00 Pulse 86 09/23/20 12:00 Resp 18 09/23/20 12:00 BP 121/57 09/23/20 12:00 Pulse Ox 97 09/23/20 12:00 Oriented: Normal Eyes: Normal Ear: Normal Nose: Normal Throat: Normal Respiratory: Clear Throughout Cardiovascular: Normal and Tachycardia Auscultation: Bowel Sounds: Normal Palpation: Normal Tenderness: Normal Skin: Normal Musculoskeletal: Normal Psychiatric: Anxiety Mood Description: Calm Affect: Normal Speech Pattern: Clear and Appropriate Labs Labs: Laboratory Last Values WBC 3.3 X10^3/uL (3.6-10.0) L 09/23/20 02:45 RBC 3.17 X10^6/uL (3.5-5.4) L 09/23/20 02:45 Hgb 9.3 g/dL (12.0-16.0) L D 09/23/20 14:00 Hct 29.9 % (36.0-47.0) L 09/23/20 14:00 MCV 77.6 fL (80.0-100.0) L 09/23/20 02:45 MCH 23.0 pg (27.0-34.0) L 09/23/20 02:45 MCHC 29.7 g/dL (33.0-35.0) L 09/23/20 02:45 RDW 20.7 % (11.6-16.5) H 09/23/20 02:45 Plt Count 326 X10^3/uL (150.0-450.0) 09/23/20 02:45 Plt Count Comment Adequate (ADEQUATE) 09/23/20 02:45 MPV 8.1 fL (7.4-11.0) 09/23/20 02:45 Neut % (Auto) 56.3 % (42.0-75.0) 09/23/20 02:45 Lymph % (Auto) 32.3 % (21.0-51.0) 09/23/20 02:45 [place] % (Auto) 8.9 % (0.0-13.0) 09/23/20 02:45 Eos % (Auto) 2.1 % (0.9-2.9) 09/23/20 02:45 Baso % (Auto) 0.4 % (0.2-1.0) 09/23/20 02:45 Neut # (Auto) 1.9 x10^3/uL (2.2-4.8) L 09/23/20 02:45 Lymph # (Auto) 1.1 X10^3/uL (1.3-2.9) L 09/23/20 02:45 [place] # (Auto) 0.3 x10^3/uL (0.3-0.8) 09/23/20 02:45 Eos # (Auto) 0.1 x10^3/uL (0.0-0.2) 09/23/20 02:45 Baso # (Auto) 0.0 X10^3/uL (0.0-0.1) 09/23/20 02:45 Absolute Nucleated RBC 0.1 /100WBC 09/23/20 02:45 Plt Morphology Comment Normal (NORMAL) 09/23/20 02:45 RBC Morphology Abnormal (NORMAL) A 09/23/20 02:45 Hypochromasia Slight A 09/23/20 02:45 Poikilocytosis 1+ A 09/22/20 14:30 Anisocytosis 1+ A 09/23/20 02:45 PT 13.3 SECONDS (11.8-14.3) 09/23/20 02:45 INR Target Range - 09/23/20 02:45 INR 1.06 (0.8-1.3) 09/23/20 02:45 APTT 29.6 SECONDS (22.9-36.5) 09/23/20 02:45 PTT Comment - 09/23/20 02:45 Sodium 144 mmol/L (136-145) 09/23/20 02:45 Corrected Sodium TNP 09/23/20 02:45 Potassium 4.0 mmol/L (3.5-5.1) 09/23/20 02:45 Chloride 109 mmol/L (98-107) H 09/23/20 02:45 Carbon Dioxide 27.5 mmol/L (21-32) 09/23/20 02:45 BUN 8 mg/dL (7-18) 09/23/20 02:45 Creatinine 0.80 mg/dL (0.55-1.02) 09/23/20 02:45 Est GFR (MDRD) Af Amer > 60 (>60) 09/23/20 02:45 Est GFR (MDRD) Non-Af > 60 (>60) 09/23/20 02:45 Glucose 89 mg/dL (65-99) 09/23/20 02:45 Calcium 7.9 mg/dL (8.5-10.1) L 09/23/20 02:45 Corrected Calcium 8.9 mg/dL (8.5-10.1) 09/23/20 02:45 Magnesium 1.8 mg/dL (1.7-2.9) 09/23/20 02:45 Iron 11 ug/dL (50-175) L 09/23/20 02:45 Transferrin 334 mg/dL (202-364) 09/23/20 02:45 Ferritin 6 ng/mL (8-252) L 09/23/20 02:45 Total Bilirubin 0.10 mg/dL (0.2-1.0) L 09/23/20 02:45 AST 10 Units/L (15-37) L 09/23/20 02:45 ALT 10 Units/L (12-78) L 09/23/20 02:45 Alkaline Phosphatase 59 Units/L (46-116) 09/23/20 02:45 Creatine Kinase 20 Units/L (26-192) L 09/23/20 02:45 CK-MB (CK-2) < 1.0 ng/mL (0-4.0) 09/23/20 02:45 CK/CKMB % Calc 5.0 % (<4) 09/23/20 02:45 Troponin I < 0.02 ng/mL (0-1.5) 09/23/20 02:45 B-Natriuretic Peptide 240 pg/mL (0-79) H 09/22/20 14:30 Total Protein 5.7 g/dL (6.4-8.2) L 09/23/20 02:45 Albumin 2.7 g/dL (3.4-5.0) L 09/23/20 02:45 Globulin 3.0 g/dL (2.5-4.5) 09/23/20 02:45 Albumin/Globulin Ratio 0.9 Ratio (1.1-2.1) L 09/23/20 02:45 Triglycerides 133 mg/dL (0-150) 09/23/20 02:45 Cholesterol 229 mg/dL (0-200) H 09/23/20 02:45 LDL Cholesterol, Calc 154 mg/dL (0-100) H 09/23/20 02:45 HDL Cholesterol 48 mg/dL (40-60) 09/23/20 02:45 Cholesterol/HDL Ratio 4.8 (0.0-5.0) 09/23/20 02:45 Vitamin B12 967 pg/mL (193-986) 09/23/20 02:45 Folate 15.1 ng/mL (>8.6) 09/23/20 02:45 TSH 3rd Generation 1.674 uIU/mL (0.358-3.74) 09/22/20 14:30 Specimen Type Clean catch urine 09/22/20 19:48 Urine Color Straw (YELLOW) 09/22/20 19:48 Urine Appearance Clear (CLEAR) 09/22/20 19:48 Urine pH 7.0 (5.0 - 8.0) 09/22/20 19:48 Ur Specific [place] 1.010 (1.000-1.030) 09/22/20 19:48 Urine Protein Negative (NEGATIVE) 09/22/20 19:48 Urine Glucose (UA) Negative (NEGATIVE) 09/22/20 19:48 Urine Ketones Negative (NEGATIVE) 09/22/20 19:48 Urine Occult Blood Negative (NEGATIVE) 09/22/20 19:48 Urine Nitrite Negative (NEGATIVE) 09/22/20 19:48 Urine Bilirubin Negative (NEGATIVE) 09/22/20 19:48 Urine Urobilinogen Normal (NORMAL) 09/22/20 19:48 Ur Leukocyte Esterase Negative (NEGATIVE) 09/22/20 19:48 SARS CoV-2 RNA Rapid PATRICIO Negative (NEGATIVE) 09/22/20 16:07 Blood Type O POSITIVE 09/23/20 08:21 Antibody Screen Negative 09/23/20 08:21 Crossmatch See Detail 09/23/20 08:21 Assessment/Plan (1) Atypical chest pain: (2) Anemia: (3) Tachycardia: (4) FABRICIO (iron deficiency anemia): (5) HTN (hypertension): (6) Shortness of breath: Hospital Course Hospital Course: Patient was admitted for observation due to chest pain rule out. She was admitted with telemetry and serial cardiac enzymes. Patient's HR improved and cardiac enzymes were negative. Her Hgb the next day did drop to 7.3. Anemia panel showed low iron. Patient denied melena or any active bleeding. Patient was transfused one unit of PRBCs. She reported feeling better. She was stable for discharge. Her Hgb at discharge was 9.3. She will follow up with PCP next week. Discharge Medications Discharge Medications: Home Medication List apixaban [Eliquis] 5 mg PO BID tab 09/23/20 [Rx] clopidogrel 75 mg PO DAILY 09/23/20 [History] clopidogrel 75 mg PO DAILY tab 09/23/20 [Rx] estradiol 1 mg DAILY 09/23/20 [History] metoprolol tartrate 25 mg PO BID tab 09/23/20 [Rx] Prescriptions: Discharge Disposition Discharge Disposition: Home
== END 2020-09-23 15:00 | disposition home health service (06) ==
LOC: ER 14:10 → MED/SURG 14:10
PROVIDERS: ADMIT Family Medicine; ATTEND Family Medicine
DX: R06.02 Shortness of breath; F41.8 Other specified anxiety disorders; R00.0 Tachycardia, unspecified; D50.8 Other iron deficiency anemias; I48.91 Unspecified atrial fibrillation; R07.2 Precordial pain; M19.90 Unspecified osteoarthritis, unspecified site; I10 Essential (primary) hypertension; R94.31 Abnormal electrocardiogram [ECG] [EKG]; Z20.822 Contact with and (suspected) exposure to COVID-19

== ENCOUNTER 2025-01-11 09:07 | Observation (INO) ==
[2025-01-11 09:31] LABS: MEAN PLATELET VOLUME 8.4 fL (7.4-11.0); RED CELL DISTRIBUTION WIDTH 15.0 % (11.6-16.5)
[2025-01-11 09:44] LABS: PLATELET MORPHOLOGY COMMENT NORMAL (NORMAL)
[2025-01-11 09:45] LABS: COR CA(FOR HYPOALB) 9.6 mg/dL (8.5-10.1); COR NA(FOR HYPERGLY) 143 mmol/L (136-145); CREATININE 1.03 mg/dL (0.55-1.02); eGFR NON BLACK RACES 56 (>60)
[2025-01-11] MEDS: MAGNESIUM SULFATE 1 GRAM/100 mL PREMIX 1 G/100 ML BAG IV ONE (10:04)
[2025-01-11] MEDS: MAG-OX TAB PO ONE ×2 (10:23→20:54)
[2025-01-11 10:27] LABS: BLOOD/HEMOGLOBIN,URINE 5+ (NEGATIVE); LEUKOCYTE ESTERASE ,URINE 3+ (NEGATIVE); NITRITES,URINE NEGATIVE (NEGATIVE)
[2025-01-11 10:28] LABS: APPEARANCE,URINE CLOUDY (CLEAR)
[2025-01-11 10:32] LABS: SQUAMOUS EPITHELIAL CELL,UR RARE /HPF (NEGATIVE)
[2025-01-11] MEDS: LASIX IVP ONE (10:34)
[2025-01-11] MEDS: NS 500 ML IV 500 ML IV ONE (10:34)
[2025-01-11] MEDS: ROCEPHIN VIAL 1 GRAM IVP ONE (10:46)
--- NOTE | 2025-01-11 11:10 | RAD ---
EXAM: CHEST, 1 VIEW HISTORY: SWELLING; HYST, ORTHO, AFIB, ANEMIA, ARTHRITIS, CHF, GERD, HTN COMPARISON: Prior study or studies were utilized for comparison during interpretation with the most relevant dated 08/08/2022 TECHNIQUE: CHEST, 1 VIEW FINDINGS: Chest: Lines and tubes: None Mediastinum: Cardiac and mediastinal shadow is within normal limits for size and contour. Pulmonary vessels: No pulmonary vascular congestion. Lung del cid: No suspicious airspace opacity. Pleura: No effusion. No pneumothorax. Bones and soft tissues: No acute osseous or soft tissue abnormality. IMPRESSION: 1. No acute cardiopulmonary abnormality THIS IS AN ELECTRONICALLY VERIFIED FINAL REPORT 01/11/2025 10:49 AM - Electronically signed by Baldo Lea MD
--- NOTE | 2025-01-11 11:12 | DR.GENAD ---
HPI Time Seen Time Seen by Provider: 01/11/25 10:14 PCP Primary Care Physician: Cindy HPI Comment HPI Comment: Patient with complaints of bilateral edema, dyspnea on exertion and generalized weakness over the last couple of weeks. This has been worsening and today she was going to see her PCP but felt too weak to go so they brought her to the ER. The episode of vomiting apparently was not so much vomitus it was spit up, per family. Patient denies chest pain or fever. She has had some dysuria and frequency. Complaint/Symptoms Chief Complaint:: c/o weakness, BLE edema and vomit x1 today. COVID-19 Coronavirus risk:travel/contact w/high risk person: No Has patient experienced Coronavirus symptoms: No Source History Provided: Patient Mode of Arrival Mode of Arrival: Wheelchair Timing Onset of Chief Complaint: 01/11/25 PMH PMH Past Medical History: Yes Past Medical History: Anxiety, CHF, GERD and Hypertension Past Surgical History: Yes Surgical History: ATTENDANCE CLERK Surgery, Hysterectomy and Ortho Surgery Past Surgical History Comment: bilateral hip, right hand Family History History of Family Medical Conditions: Yes Family Medical History: Diabetes Mellitus, Cancer, [place], Coronary Artery Disease, Heart Failure and Hypertension Social History Type of Tobacco Use: None Alcohol Use: None Do you use any recreational Drugs:: No Lives With: Family Lives Where: Home Travel Risk Coronavirus risk:travel/contact w/high risk person: No Has patient experienced Coronavirus symptoms: No Infectious screening Have you traveled outside the country in the last 6 months?: No Isolation: Standard ROS Review of Systems Constitutional: See HPI and Weakness (Generalized, not focalized); negative Fever or Fatigue Eyes: No Symptoms Reported ENTM: No Symptoms Reported Respiratoy: No Symptoms Reported Cardiovascular: Edema (Takes Lasix at home and has oxygen as needed for CHF); negative Chest Pain, Palpitations or Syncope Gastrointestinal/Abdominal: No Symptoms Reported Genitourinary: See HPI Neurological: No Symptoms Reported; negative Headache, Numbness, Paresthesia, Seizure, Tingling, Dizziness or Speech Problem Musculoskeletal: No Symptoms Reported Integumentary: No Symptoms Reported Hematologic/Lymphatic: No Symptoms Reported Endocrine: No Symptoms Reported Psychiatric: No Symptoms Reported All Other Systems: Reviewed and Negative PE Vital Signs Vitals: Vital Signs Temperature 97.9 F Pulse Rate 99 Respiratory Rate 16 Blood Pressure 116/73 O2 Sat by Pulse Oximetry 95 General Limitations: No Limitations General Appearance: Alert and In No Apparent Distress Head Head Exam: Normal Inspection Eyes Eye exam: Normal Appearance ENT ENT Exam: Normal Exam External Ear Exam: Normal External Inspection TM/Canal Exam: Bilateral: Normal Nose Exam: Normal Nose Exam Mouth Exam: Normal Inspection Throat Exam: Normal Inspection Neck Neck Exam: Normal Inspection Chest Chest Inspection: Normal Inspection Respiratory Respiratory Exam: Normal Lung Sounds Bilat Respiratory Exam: Bilateral: Clear to Auscultation Cardiovascular Cardiovascular Exam: Regular Rate and Normal Rhythm Abdominal Exam Abdominal Exam: Normal Inspection, Normal Bowel Sounds and Soft; negative Distention, Tenderness, Guarding, Rebound, Rigidity or Ascites Extremities Extremities Exam: Normal Capillary Refill and Edema (Bilateral 1+) Back Back Exam: Normal Inspection Neurologic Neurological Exam: Alert and Oriented X3 Psychiatric Psychiatric Exam: Normal Affect and Normal Mood Skin Skin Exam: Warm, Dry, Intact and Normal Color COURSE Treatment Treatment: Patient in very mild CHF exacerbation with some acute renal failure/dehydration and severe UTI. Discussed results of findings with patient and family and they are agreeable with admission. Consultation Called: 11:11 Consultation Comments: Discussed case with Dr. White and he is agreeable to admission. ROR Labs Reviewed Laboratory Results Reviewed?: Yes 01/11/25 09:15 01/11/25 09:15 Laboratory: WBC 6.9 X10^3/uL (3.6-10.0) 01/11/25 09:15 RBC 3.38 X10^6/uL (3.5-5.4) L 01/11/25 09:15 Hgb 11.6 g/dL (12.0-16.0) L 01/11/25 09:15 Hct 35.5 % (36.0-47.0) L 01/11/25 09:15 MCV 105.2 fL (80.0-100.0) H 01/11/25 09:15 MCH 34.3 pg (27.0-34.0) H 01/11/25 09:15 MCHC 32.6 g/dL (33.0-35.0) L 01/11/25 09:15 RDW 15.0 % (11.6-16.5) 01/11/25 09:15 Plt Count 250 X10^3/uL (150.0-450.0) 01/11/25 09:15 Plt Count Comment Adequate (ADEQUATE) 01/11/25 09:15 MPV 8.4 fL (7.4-11.0) 01/11/25 09:15 Neut % (Auto) 50.3 % (42.0-75.0) 01/11/25 09:15 Lymph % (Auto) 39.3 % (21.0-51.0) 01/11/25 09:15 [place] % (Auto) 6.8 % (0.0-13.0) 01/11/25 09:15 Eos % (Auto) 2.9 % (0.9-2.9) 01/11/25 09:15 Baso % (Auto) 0.7 % (0.2-1.0) 01/11/25 09:15 Neut # (Auto) 3.5 x10^3/uL (2.2-4.8) 01/11/25 09:15 Lymph # (Auto) 2.7 X10^3/uL (1.3-2.9) 01/11/25 09:15 [place] # (Auto) 0.5 x10^3/uL (0.3-0.8) 01/11/25 09:15 Eos # (Auto) 0.2 x10^3/uL (0.0-0.2) 01/11/25 09:15 Baso # (Auto) 0.1 X10^3/uL (0.0-0.1) 01/11/25 09:15 Absolute Nucleated RBC 0.0 /100WBC 01/11/25 09:15 Plt Morphology Comment Normal (NORMAL) 01/11/25 09:15 RBC Morphology Abnormal (NORMAL) A 01/11/25 09:15 Microcytosis 1+ A 01/11/25 09:15 Sodium 143 mmol/L (136-145) 01/11/25 09:15 Corrected Sodium 143 mmol/L (136-145) 01/11/25 09:15 Potassium 3.9 mmol/L (3.5-5.1) 01/11/25 09:15 Chloride 108 mmol/L (98-107) H 01/11/25 09:15 Carbon Dioxide 26.6 mmol/L (21-32) 01/11/25 09:15 BUN 20 mg/dL (7-18) H 01/11/25 09:15 Creatinine 1.03 mg/dL (0.55-1.02) H 01/11/25 09:15 Est GFR (MDRD) Af Amer > 60 (>60) 01/11/25 09:15 Est GFR (MDRD) Non-Af 56 (>60) L 01/11/25 09:15 Glucose 114 mg/dL (65-99) H 01/11/25 09:15 Calcium 8.6 mg/dL (8.5-10.1) 01/11/25 09:15 Corrected Calcium 9.6 mg/dL (8.5-10.1) 01/11/25 09:15 Magnesium 1.8 mg/dL (2.0-2.9) L 01/11/25 09:15 Total Bilirubin 0.10 mg/dL (0.2-1.0) L 01/11/25 09:15 AST 19 Units/L (15-37) 01/11/25 09:15 ALT 19 Units/L (12-78) 01/11/25 09:15 Alkaline Phosphatase 80 Units/L (46-116) 01/11/25 09:15 B-Natriuretic Peptide 153 pg/mL (0-79) H 01/11/25 09:15 Total Protein 6.2 g/dL (6.4-8.2) L 01/11/25 09:15 Albumin 2.7 g/dL (3.4-5.0) L 01/11/25 09:15 Globulin 3.5 g/dL (2.5-4.5) 01/11/25 09:15 Albumin/Globulin Ratio 0.8 Ratio (1.1-2.1) L 01/11/25 09:15 Specimen Type Clean catch urine 01/11/25 10:14 Urine Color Yellow (YELLOW) 01/11/25 10:14 Urine Appearance Cloudy (CLEAR) 01/11/25 10:14 Urine pH 6.0 (5.0 - 8.0) 01/11/25 10:14 Ur Specific [place] 1.015 (1.000-1.030) 01/11/25 10:14 Urine Protein 3+ (NEGATIVE) 01/11/25 10:14 Urine Glucose (UA) Negative (NEGATIVE) 01/11/25 10:14 Urine Ketones Negative (NEGATIVE) 01/11/25 10:14 Urine Blood 5+ (NEGATIVE) 01/11/25 10:14 Urine Nitrite Negative (NEGATIVE) 01/11/25 10:14 Urine Bilirubin Negative (NEGATIVE) 01/11/25 10:14 Urine Urobilinogen Normal (NORMAL) 01/11/25 10:14 Ur Leukocyte Esterase 3+ (NEGATIVE) 01/11/25 10:14 Urine RBC 10-20 /HPF (0-3) A 01/11/25 10:14 Urine WBC Tntc /HPF (0-5) A 01/11/25 10:14 Ur Squamous Epith Cells Rare /HPF (NEGATIVE) 01/11/25 10:14 Amorphous Sediment Trace /HPF (NEGATIVE) 01/11/25 10:14 Urine Bacteria 1+ /HPF (NEGATIVE) 01/11/25 10:14 Ur Culture Indicated? Yes/culture set up 01/11/25 10:14 SARS-CoV-2 (PCR) Negative (NEGATIVE) 01/11/25 09:13 Influenza Type A (PCR) Negative (NEGATIVE) 01/11/25 09:13 Influenza Type B (PCR) Negative (NEGATIVE) 01/11/25 09:13 RSV (PCR) Negative (NEGATIVE) 01/11/25 09:13 XRAY XRAY Interpreted by: Self (Chest x-ray reviewed and interpreted by myself. Radiology report not available. No acute cardiopulmonary findings noted) Opioid Opioid Risk Tool Age (Maxi box if 16-45): No History of Preadolescent Sexual Abuse: No Total: 0 Total Score Risk Category: Low Risk Copyright: Xander LIAO predicting aberrant behaviors Discharge Plan Diagnosis Discharge Problem: Acute exacerbation of CHF (congestive heart failure), Acute kidney failure, Acute UTI Discharge Plan Patient Disposition: 09 ADMITTED INPATIENT Condition: Stable Prescriptions: No Action atorvastatin 40 mg tablet 40 mg PO QDAY Qty: 90 0RF furosemide 20 mg tablet 20 mg PO QDAY Qty: 90 0RF gabapentin 100 mg capsule 100 mg PO QDAY 30 Days Qty: 30 3RF ergocalciferol (vitamin D2) 1,250 mcg (50,000 unit) capsule 1,250 mcg PO QWEEK Qty: 13 1RF alprazolam 0.5 mg tablet 0.5 mg PO BID MDD 2 PRN (Reason: anxiety) 30 Days Qty: 60 0RF Eliquis 5 mg tablet 5 mg PO BID Qty: 180 0RF escitalopram oxalate 10 mg tablet 10 mg PO DAILY 30 Days Qty: 30 3RF metoprolol succinate 25 mg tablet extended release 24 hr 25 mg PO QDAY 90 Days Qty: 90 0RF oxycodone-acetaminophen [Percocet] 7.5-325 mg tablet 1 tab PO TID MDD 3 PRN (Reason: pain) 30 Days Qty: 90 0RF pantoprazole 40 mg tablet,delayed release (DR/EC) 40 mg PO QDAY 90 Days Qty: 90 0RF potassium chloride 10 mEq tablet extended release 10 meq PO QDAY Qty: 90 0RF Health Concerns: Post Hospitalization: new medications and changes needed to prevent readmission or further decline. Pt educated and given instructions on all concerns. Plan of Treatment: Continue with present treatment and follow up plan. Pt is to keep follow up appointment as instructed and take medications as ordered. Orders to Discharge Patient Discharge Orders: Transfer (Routine); Ordered 01/11/25 Ordered By: Eduardo Dietrich Follow ups/Referrals Follow ups/Referrals: Sea White MD [Primary Care Provider, MEDICAL] - 3 days Instructions Stand Alone Forms: Find Help Web Site, Post Hospital Follow Up Care Print Language: SAMI
[2025-01-11] MEDS ORDERED: CONSULT PHARMACY - POTASSIUM & MAGNESIUM XX SCH ×2 (12:52→20:00)
[2025-01-11] MEDS ORDERED: NovoLIN R (or HumuLIN R) SUBCUT PRN (12:52)
[2025-01-11] MEDS ORDERED: ULTRAM PO PRN (12:52)
[2025-01-11] MEDS: TYLENOL 325 MG TAB PO PRN (14:05)
[2025-01-11] MEDS: ZOFRAN INJ 4 MG VIAL IVP PRN (14:08)
[2025-01-11] MEDS: NS 1,000 ML IV 1,000 ML IV SCH (14:09)
[2025-01-11] MEDS: ROCEPHIN VIAL 1 GRAM ONE (14:27)
[2025-01-11 14:57] VITALS: BMI 21.9
[2025-01-11] MEDS: LASIX IVP SCH (17:55)
[2025-01-11] MEDS: K-DUR TAB 20 MEQ PO ONE (20:53)
[2025-01-11] MEDS: ALPRAZOLAM ODT PO PRN (20:53)
[2025-01-11] MEDS: ELIQUIS PO SCH (20:53)
[2025-01-11] MEDS: SNACK - Diabetic Appropriate PO SCH (20:54)
[2025-01-11] MEDS: NORCO 5/325 MG TAB PO PRN (21:20)
[2025-01-12 05:41] LABS: MEAN PLATELET VOLUME 8.5 fL (7.4-11.0); RED CELL DISTRIBUTION WIDTH 14.5 % (11.6-16.5)
[2025-01-12 06:02] LABS: COR CA(FOR HYPOALB) 9.4 mg/dL (8.5-10.1); COR NA(FOR HYPERGLY) 144 mmol/L (136-145); CREATININE 0.71 mg/dL (0.55-1.02); eGFR NON BLACK RACES > 60 (>60)
[2025-01-12] MEDS ORDERED: LASIX PO SCH (09:00)
[2025-01-12] MEDS: LEXAPRO PO SCH (09:17)
[2025-01-12] MEDS: ROCEPHIN VIAL 1 GRAM 1 G in NS 100 ML IV 100 ML IV SCH (09:17)
[2025-01-12] MEDS: LIPITOR TAB 40 MG PO SCH (09:18)
[2025-01-12] MEDS: KLOR-CON 10 MEQ TAB PO SCH (09:19)
[2025-01-12] MEDS: TOPROL XL PO SCH (09:19)
[2025-01-12] MEDS: PROTONIX TAB 40 MG PO SCH (09:19)
[2025-01-12] MEDS: NEURONTIN CAP 100 MG PO SCH (09:20)
--- NOTE | 2025-01-12 10:21 | DR.H&P ---
H&P History & Physical for Day of: H&P Date: 01/12/25 Chief Complaint Chief Complaint: urinary symptoms, weakness History of Present Illness History of Present Illness: Patient is a 74-year-old female with a past medical history of anxiety, hyperlipidemia, atrial fibrillation, CHF, hypertension, GERD and chronic pain presented with generalized weakness, urinary symptoms and lower extremity edema. Flu, COVID and RSV were negative. ER workup showed elevated BNP, UA was suggestive of infection. She also had slight elevation of BUN and creatinine. Chest x-ray was negative. She was started on IV antibiotics and gentle hydration. She also got 1 dose of Lasix for lower extremity edema. She was admitted for further evaluation. She is feeling better today. Labs/imaging reviewed: - WBC 4.4 hemoglobin 10.2 platelet 173 potassium 3.9 creatinine 0.7 BUN 13 - BNP 208 - Chest x-ray no acute changes - Urine culture pending Plan: Admit to [facility]. Continue gentle hydration. Continue IV antibiotics. Follow final cultures. Resume home medications. Replace electrolytes as per protocol. Physical therapy as tolerated. Monitor a.m. labs and imaging. Past Medical History Past Medical History: Anxiety, CHF, GERD and Hypertension Additional Medical History: Atrial fibrillation Past Surgical History Surgical History: Hysterectomy, Joint Replacement and Ortho Surgery Family History Family Medical History: Diabetes Mellitus, Cancer, [place], Coronary Artery Disease and Hypertension Social History Does patient currently use any type of tobacco product: No Type of Tobacco Use: None Does any household member use tobacco: No Alcohol Use: None Drug Use: None Allergies Allergies Allergy/AdvReac Type Severity Reaction Status Date / Time No Known Drug Allergies Allergy Unknown Verified 01/11/25 09:18 Labs 01/12/25 05:10 01/12/25 05:10 Labs: 01/11/25 10:14 Urine,Clean Catch Urine Culture - Preliminary Laboratory WBC 4.4 X10^3/uL (3.6-10.0) 01/12/25 05:10 RBC 2.95 X10^6/uL (3.5-5.4) L 01/12/25 05:10 Hgb 10.2 g/dL (12.0-16.0) L 01/12/25 05:10 Hct 30.3 % (36.0-47.0) L 01/12/25 05:10 MCV 102.8 fL (80.0-100.0) H 01/12/25 05:10 MCH 34.5 pg (27.0-34.0) H 01/12/25 05:10 MCHC 33.6 g/dL (33.0-35.0) 01/12/25 05:10 RDW 14.5 % (11.6-16.5) 01/12/25 05:10 Plt Count 173 X10^3/uL (150.0-450.0) 01/12/25 05:10 Plt Count Comment Adequate (ADEQUATE) 01/11/25 09:15 MPV 8.5 fL (7.4-11.0) 01/12/25 05:10 Neut % (Auto) 66.0 % (42.0-75.0) 01/12/25 05:10 Lymph % (Auto) 18.8 % (21.0-51.0) L 01/12/25 05:10 [place] % (Auto) 11.9 % (0.0-13.0) 01/12/25 05:10 Eos % (Auto) 3.0 % (0.9-2.9) H 01/12/25 05:10 Baso % (Auto) 0.3 % (0.2-1.0) 01/12/25 05:10 Neut # (Auto) 2.9 x10^3/uL (2.2-4.8) 01/12/25 05:10 Lymph # (Auto) 0.8 X10^3/uL (1.3-2.9) L 01/12/25 05:10 [place] # (Auto) 0.5 x10^3/uL (0.3-0.8) 01/12/25 05:10 Eos # (Auto) 0.1 x10^3/uL (0.0-0.2) 01/12/25 05:10 Baso # (Auto) 0.0 X10^3/uL (0.0-0.1) 01/12/25 05:10 Absolute Nucleated RBC 0.0 /100WBC 01/12/25 05:10 Plt Morphology Comment Normal (NORMAL) 01/11/25 09:15 RBC Morphology Abnormal (NORMAL) A 01/11/25 09:15 Microcytosis Not Reportable 01/11/25 09:15 Macrocytosis 1+ A 01/11/25 09:15 Sodium 144 mmol/L (136-145) 01/12/25 05:10 Corrected Sodium 144 mmol/L (136-145) 01/12/25 05:10 Potassium 3.9 mmol/L (3.5-5.1) 01/12/25 05:10 Chloride 109 mmol/L (98-107) H 01/12/25 05:10 Carbon Dioxide 32.4 mmol/L (21-32) H 01/12/25 05:10 BUN 13 mg/dL (7-18) 01/12/25 05:10 Creatinine 0.71 mg/dL (0.55-1.02) 01/12/25 05:10 Est GFR (MDRD) Af Amer > 60 (>60) 01/12/25 05:10 Est GFR (MDRD) Non-Af > 60 (>60) 01/12/25 05:10 Glucose 116 mg/dL (65-99) H 01/12/25 05:10 POC Glucose (mg/dL) 108 mg/dL (65-99) H 01/12/25 05:20 Calcium 8.1 mg/dL (8.5-10.1) L 01/12/25 05:10 Corrected Calcium 9.4 mg/dL (8.5-10.1) 01/12/25 05:10 Magnesium 2.0 mg/dL (2.0-2.9) 01/12/25 05:10 Total Bilirubin 0.10 mg/dL (0.2-1.0) L 01/12/25 05:10 AST 20 Units/L (15-37) 01/12/25 05:10 ALT 18 Units/L (12-78) 01/12/25 05:10 Alkaline Phosphatase 79 Units/L (46-116) 01/12/25 05:10 B-Natriuretic Peptide 208 pg/mL (0-79) H 01/12/25 05:10 Total Protein 5.4 g/dL (6.4-8.2) L 01/12/25 05:10 Albumin 2.4 g/dL (3.4-5.0) L 01/12/25 05:10 Globulin 3.0 g/dL (2.5-4.5) 01/12/25 05:10 Albumin/Globulin Ratio 0.8 Ratio (1.1-2.1) L 01/12/25 05:10 Specimen Type Clean catch urine 01/11/25 10:14 Urine Color Yellow (YELLOW) 01/11/25 10:14 Urine Appearance Cloudy (CLEAR) 01/11/25 10:14 Urine pH 6.0 (5.0 - 8.0) 01/11/25 10:14 Ur Specific [place] 1.015 (1.000-1.030) 01/11/25 10:14 Urine Protein 3+ (NEGATIVE) 01/11/25 10:14 Urine Glucose (UA) Negative (NEGATIVE) 01/11/25 10:14 Urine Ketones Negative (NEGATIVE) 01/11/25 10:14 Urine Blood 5+ (NEGATIVE) 01/11/25 10:14 Urine Nitrite Negative (NEGATIVE) 01/11/25 10:14 Urine Bilirubin Negative (NEGATIVE) 01/11/25 10:14 Urine Urobilinogen Normal (NORMAL) 01/11/25 10:14 Ur Leukocyte Esterase 3+ (NEGATIVE) 01/11/25 10:14 Urine RBC 10-20 /HPF (0-3) A 01/11/25 10:14 Urine WBC Tntc /HPF (0-5) A 01/11/25 10:14 Ur Squamous Epith Cells Rare /HPF (NEGATIVE) 01/11/25 10:14 Amorphous Sediment Trace /HPF (NEGATIVE) 01/11/25 10:14 Urine Bacteria 1+ /HPF (NEGATIVE) 01/11/25 10:14 Ur Culture Indicated? Yes/culture set up 01/11/25 10:14 SARS-CoV-2 (PCR) Negative (NEGATIVE) 01/11/25 09:13 Influenza Type A (PCR) Negative (NEGATIVE) 01/11/25 09:13 Influenza Type B (PCR) Negative (NEGATIVE) 01/11/25 09:13 RSV (PCR) Negative (NEGATIVE) 01/11/25 09:13 Review of Systems Constitutional: Weakness and Malaise Eyes: No Symptoms Reported ENT: No Symptoms Reported Respiratory: Shortness of Breath Cardiovascular: Edema Gastrointestinal: No Symptoms Reported Genitourinary: Dysuria and Frequency Musculoskeletal: No Symptoms Reported Skin: No Symptoms Reported Neurological: No Symptoms Reported Physical Exam Vital Signs: Vital Signs Temperature 97.8 F Pulse Rate [Right Brachial] 89 Respiratory Rate 16 Respiratory Rate 20 Blood Pressure [Right Arm] 121/62 O2 Sat by Pulse Oximetry 96 Oriented: Normal Respiratory: Diminished Throughout Cardiovascular: Normal and Edema Auscultation: Bowel Sounds: Normal Palpation: Normal Tenderness: Normal Skin: Normal Musculoskeletal: Normal Psychiatric: Normal Mood Description: Calm Affect: Normal Speech Pattern: Clear and Appropriate Assessment/Plan (1) Acute UTI: Status: Acute (2) Acute kidney failure: Qualifiers: Acute renal failure type: unspecified Qualified Code(s): N17.9 - Acute kidney failure, unspecified Status: Acute (3) Acute exacerbation of CHF (congestive heart failure): Qualifiers: Heart failure type: unspecified Qualified Code(s): I50.9 - Heart failure, unspecified Status: Acute (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
[2025-01-12] MEDS: LEXAPRO ONE (12:29)
[2025-01-13 05:33] LABS: MEAN PLATELET VOLUME 8.3 fL (7.4-11.0); RED CELL DISTRIBUTION WIDTH 14.2 % (11.6-16.5)
[2025-01-13 05:50] LABS: COR CA(FOR HYPOALB) 9.4 mg/dL (8.5-10.1); CREATININE 0.52 mg/dL (0.55-1.02); eGFR NON BLACK RACES > 60 (>60)
[2025-01-13 08:26] VITALS: BP 131/82; PULSE 104; RESP 18; TEMP 98.1; O2SAT 96
[2025-01-13] MEDS ORDERED: LEXAPRO ONE (08:36)
== END 2025-01-13 12:10 | disposition home health service (06) ==
LOC: ER 09:07 → MED/SURG 09:07
PROVIDERS: ADMIT Family Medicine; ATTEND Family Medicine
DX: E83.42 Hypomagnesemia; F41.8 Other specified anxiety disorders; M47.816 Spondylosis without myelopathy or radiculopathy, lumbar region; R73.09 Other abnormal glucose; Z99.81 Dependence on supplemental oxygen; E78.2 Mixed hyperlipidemia; Z03.818 Encounter for observation for suspected exposure to other biological agents ruled out; B96.29 Other Escherichia coli [E. coli] as the cause of diseases classified elsewhere; N39.0 Urinary tract infection, site not specified; I11.0 Hypertensive heart disease with heart failure; I50.89 Other heart failure; I48.20 Chronic atrial fibrillation, unspecified; N17.8 Other acute kidney failure; K21.9 Gastro-esophageal reflux disease without esophagitis; R53.1 Weakness; R26.89 Other abnormalities of gait and mobility